=== PATIENT | female | born 2000 | race Caucasian/White ===

== ENCOUNTER 2024-06-13 10:53 | Emergency (ER) | payer SELFPAY ==
[2024-06-13 10:55] VITALS: BP 141/75; PULSE 100; RESP 18; TEMP 36.7; O2SAT 98; BMI 33.9
[2024-06-13 11:28] LABS: Basophils % 0.4 % (0.1-2.0); Eosinophils # 0.5 K/mm3 (0.0-0.4); Eosinophils % 4.8 % (0.1-12.0); Hematocrit 41.7 % (37.0-47.0); Hemoglobin 14.6 g/dL (12.2-16.2); Lymphocytes # 1.4 K/mm3 (0.7-4.5); Lymphocytes % 12.2 % (10-50); Mean Corpuscular HGB Conc 34.9 g/dL (31.8-35.4); Mean Corpuscular Hemoglobin 29.2 pg (27.0-31.2); Mean Corpuscular Volume 83.7 fl (81-99); Mean Platelet Volume 7.1 fl (7.4-10.4); Monocytes # 0.4 K/mm3 (0.1-1.0); Monocytes % 3.6 % (1.7-9.3); Neutrophils % 79.1 % (37.0-80.0); Platelet Count 272 K/mm3 (142-424); Red Blood Count 4.98 M/mm3 (4.20-5.40); Red Cell Distribution Width 14.1 % (11.5-17.5); White Blood Count 11.4 K/mm3 (4.8-10.8)
[2024-06-13 11:37] LABS: Alanine Aminotransferase 33 U/L (12-78); Albumin Level 4.2 g/dl (3.5-5.0); Albumin/Globulin Ratio 1.4 (1.1-1.8); Alkaline Phosphatase 68 U/L (38-126); Anion Gap 15.8 mEq/L (5-15); Aspartate Amino Transferase 31 U/L (14-36); Bilirubin,Total 0.5 mg/dl (0.2-1.3); Blood Urea Nitrogen 12 mg/dl (7-17); Calcium 9.2 mg/dl (8.4-10.2); Carbon Dioxide 19 mmol/L (22.0-30.0); Chloride 107 mmol/L (98-107); Creatinine Clearance Estimated 194 mL/min (50-200); Estimated Glomerular Filt Rate 88 ml/min (>60); GFR (African American) 107 ML/MIN (>60); Globulin 2.9 g/dL (1.3-3.2); Glucose 118 mg/dl (74-100); Potassium 3.8 mmoL/L (3.5-5.1); Sodium 138 mmol/L (136-145); Total Protein,Serum 7.1 g/dl (6.3-8.2)
--- NOTE | 2024-06-13 11:45 | CT_ITS ---
PROCEDURE INFORMATION: Exam: CT Abdomen And Pelvis With Contrast Exam date and time: 06/13/2024 12:59 PM Age: 24 years old Clinical indication: Abdominal pain; Additional info: R sided abd pelvic pain TECHNIQUE: Imaging protocol: Computed tomography of the abdomen and pelvis with contrast. Radiation optimization: All CT scans at this facility use at least one of these dose optimization techniques: automated exposure control; mA and/or kV adjustment per patient size (includes targeted exams where dose is matched to clinical indication); or iterative reconstruction. Contrast material: ISOVUE; Contrast volume: 75 ml; Contrast route: IV; COMPARISON: No relevant prior studies available. FINDINGS: Lungs: Lung bases are unremarkable. Pleural spaces: No pneumothorax. No pleural effusion. Liver: Hepatic steatosis noted. No focal hepatic lesions. Gallbladder and biliary ducts: Normal. No calcified stones. No ductal dilation. Pancreas: No peripancreatic fluid stranding. No main pancreatic ductal dilation. Spleen: No splenomegaly. Adrenal glands: The adrenal glands are normal. Kidneys and ureters: Nephrograms are symmetric. No nephrolithiasis or hydroureteronephrosis on either side. No solid lesions Stomach and bowel: Liquid stool throughout the cecum and ascending colon. Appendix: A normal appendix is identified. Intraperitoneal space: There is no evidence of free intraperitoneal or pelvic fluid. Vasculature: Aorta is nonaneurysmal. Major aortic branches are patent. Lymph nodes: Unremarkable. No enlarged lymph nodes. Urinary bladder: Unremarkable as visualized. Reproductive: Unremarkable as visualized. Bones/joints: Unremarkable. No acute fracture. Soft tissues: Unremarkable. IMPRESSION: Findings can be seen in the context of infectious/inflammatory ascending colitis.
[2024-06-13] MEDS: ACETAMINOPHEN 500MG TAB 1000 MG PO (11:54)
[2024-06-13] MEDS: ONDANSETRON 4MG/2ML VIAL 4 MG IV (11:54)
[2024-06-13] MEDS: KETOROLAC 30MG/ML VIAL 15 MG IV (11:55)
--- NOTE | 2024-06-13 12:39 | HMH.EDGENADL ---
Discharge Plan Disposition Patient Disposition: Home, Self-Care Condition: Good Prescriptions Prescriptions: New ketorolac 10 mg tablet 10 mg PO Q8H PRN (Reason: pain) 3 Days Qty: 12 0RF ondansetron 4 mg tablet,disintegrating 4 mg PO Q8H PRN (Reason: nausea and vomiting) 4 Days Qty: 12 0RF dicyclomine 20 mg tablet 20 mg PO QID PRN (Reason: abdominal pain) Qty: 12 0RF Referrals Follow up/Referrals: Provider,Referral, MD [Primary Care Provider] - See instructions Activity Restrictions/Add. Instructions Additional Instructions/Restrictions: You were evaluated in the emergency department today. At this time, your stool testing is still pending. Stool panel and urine culture was sent and are pending. We will call you if we need to prescribe you any antibiotics based on results. Please picker and packer your prescriptions at the pharmacy and take them as prescribed. You may also take Tylenol every 4-6 hours at home as needed for pain. Make sure you stay orally hydrated. Eat a bland diet until your symptoms have resolved. Return to the emergency department right away for new or worsening symptoms. Follow-up closely with your primary care provider for reassessment Clinical Impressions Clinical Impression: Colitis Stand Alone Forms Stand Alone Forms: Work/School Release Instructions Patient Instructions: DI for Acute Abdominal Pain, DI for Colitis Print Language Print Language: [place] Discharge ED Provider: Kenisha Lundberg General Adult HPI General Chief complaint: Abdominal Pain Stated complaint: R side back and leg pain Time Seen by Provider: 06/13/24 11:36 Mode of Arrival: Ambulatory Source of Information: Patient Limitations: No Limitations Description of Symptoms (Recalled from ER Triage Doc. by RN): PT C/O SUDDEN ONSET OF RIGHT LOWER QUAD PAIN THAT RADIATES AROUND ABDOMEN. PAIN IS SHARP IN NATURE, INTERMITTENT History of Present Illness HPI narrative: This patient is a 24-year-old female who denies significant past medical history presenting to the emergency department for evaluation with concern for right-sided abdominal pain. She states that it is in her right lower quadrant. She is also had nausea secondary to the pain being severe. No fevers, chills, urinary symptoms, abnormal vaginal discharge or bleeding, or other concerns. She does have watery diarrhea this nonbloody. The pain is sharp in nature and intermittent and started this morning. This patient is status post cholecystectomy. Related Data Previous Rx's ?Medication ?Instructions ?Recorded dicyclomine 20 mg tablet 20 mg PO QID PRN abdominal pain 06/13/24 #12 tabs ketorolac 10 mg tablet 10 mg PO Q8H PRN pain 3 days #12 06/13/24 tabs ondansetron 4 mg disintegrating 4 mg PO Q8H PRN nausea and 06/13/24 tablet vomiting 4 days #12 tabs Allergies Allergy/AdvReac Type Severity Reaction Status Date / Time No Known Allergies Allergy Verified 06/13/24 11:11 [facility] Disclaimer: The information contained in this section may have been updated after the patient was seen, as this information can be updated by other users. Social History Smoking Status: Never smoker alcohol intake: never current occupational status: employed Travel in the last 8 weeks: None ROS Obtained: Yes All systems reviewed & no additional complaints except as documented Physical Exam General General appearance: alert and in no apparent distress Head Head exam: atraumatic and normocephalic Eye Eye exam: Present normal appearance, PERRL and EOMI ENT ENT exam: Present normal exam, normal oropharynx, mucous membranes moist and normal external ear exam Neck Neck exam: Present normal inspection, full ROM and trachea midline; Absent tenderness Chest Chest inspection: Present normal inspection and symmetric chest wall rise; Absent tenderness Respiratory Respiratory exam: Present normal lung sounds bilaterally; Absent respiratory distress, wheezes, stridor or accessory muscle use Cardiovascular Cardiovascular exam: Present regular rate and normal rhythm Abdominal Exam Abdominal exam: Present soft, tenderness (Right lower quadrant) and normal bowel sounds; Absent distention, guarding, rebound or rigidity Extremities Exam Extremities exam: Present normal inspection, full ROM and normal capillary refill; Absent tenderness or edema Back Exam Back exam: Present normal inspection and full ROM; Absent tenderness Neurological Exam Neurological exam: Present alert, oriented X3, CN II-XII intact and normal gait; Absent motor sensory deficit Psychiatric Psychiatric exam: Present normal affect and normal mood Skin Skin exam: Present warm and dry Medical Decision Making Medical Records Medical records reviewed: Yes I reviewed the patient's medical records. Screening: Per USPSTF and CDC recommendations, given the prevalence of disease in our region, it is our hospital?s policy to screen for HIV and viral Hepatitis for all patients aged 18 and over and those with ongoing risk factors. Joseph Inquiry Pt receiving controlled substance: No Vital Signs: 06/13/24 10:55 06/13/24 15:01 Temperature 98.0 F 98.0 F Temperature Source Oral Pulse Rate 89 Pulse Rate [Radial] 100 H Respiratory Rate 18 20 Blood Pressure 120/78 Blood Pressure [Left Arm] 141/75 H Blood Pressure Mean [Left Arm] 97 Blood Pressure Source [Left Arm] Automatic Cuff Blood Pressure Position [Left Arm] Sitting 02 Sat by Pulse Oximetry 98 Oxygen Delivery Method Room Air Room Air Lab Data Lab results reviewed: Yes I reviewed the patient's lab results. Lab Results 06/13/24 11:18: WBC 11.4 H, RBC 4.98, Hgb 14.6, Hct 41.7, MCV 83.7, MCH 29.2, MCHC 34.9, RDW 14.1, Plt Count 272, MPV 7.1 L, Neut % (Auto) 79.1, Lymph % (Auto) 12.2, [place] % (Auto) 3.6, Eos % (Auto) 4.8, Baso % (Auto) 0.4, Neut # (Auto) 9.0 H, Lymph # (Auto) 1.4, [place] # (Auto) 0.4, Eos # (Auto) 0.5 H, Baso # (Auto) 0.0, Sodium 138, Potassium 3.8, Chloride 107, Carbon Dioxide 19 L, Anion Gap 15.8 H, BUN 12, Creatinine 0.80, Estimated Creat Clear 194, Estimated GFR 88, Est GFR ( Amer) 107, Glucose 118 H, Calcium 9.2, Total Bilirubin 0.5, AST 31, ALT 33, Alkaline Phosphatase 68, Total Protein 7.1, Albumin 4.2, Globulin 2.9, Albumin/Globulin Ratio 1.4, Serum HCG, Qual Negative 06/13/24 12:39: Urine Color Yellow, Urine Appearance Cloudy, Urine pH 5.5, Ur Specific [place] >= 1.030, Urine Protein Trace, Urine Glucose (UA) Negative, Urine Ketones Trace, Urine Blood Negative, Urine Nitrate Negative, Urine Bilirubin 1+ A, Urine Urobilinogen 0.2, Ur Leukocyte Esterase 1+ A, Urine RBC None, Urine WBC 3-5, Ur Squamous Epith Cells 3-5, Calcium Oxalate Crystal 2+, Urine Bacteria 3+ 06/13/24 11:18 06/13/24 11:18 Orders (Tests/Meds): ED MEDICATIONS Discontinued Medications Generic Name Dose Route Start Last Admin Trade Name Ron PRN Reason Stop Dose Admin Acetaminophen 1,000 mg 06/13/24 11:45 06/13/24 11:54 Acetaminophen 500mg Tab PO 06/13/24 11:46 1,000 mg ONCE ONE Administration Iopamidol 75 ml 06/13/24 13:05 06/13/24 13:06 Iopamidol-370 (76%);100ml Bottle IV 06/13/24 13:06 75 ml ONCE ONE Administration Ketorolac Tromethamine 15 mg 06/13/24 11:45 06/13/24 11:55 Ketorolac 30mg/Ml Vial IV 06/13/24 11:46 15 mg ONCE ONE Administration Ondansetron HCl 4 mg 06/13/24 11:45 06/13/24 11:54 Ondansetron 4mg/2ml Vial IV 06/13/24 11:46 4 mg ONCE ONE Administration Sodium Chloride 10 ml 06/13/24 11:23 Sodium Chloride 0.9% 10ml Flush Syringe IV 07/13/24 11:22 NEEDED PRN Maintain IV Site Sodium Chloride 10 ml 06/13/24 13:05 06/13/24 13:06 Sodium Chloride 0.9% 10ml Syr (Rad Only) IV 07/13/24 13:04 10 ml NEEDED PRN Administration Maintain IV Site ORDERS Category Date Time Status CT abdomen pelvis w con Stat Cat Scan 06/13/24 11:45 Completed CMP [Comprehensive Metabolic Panel] Stat Lab 06/13/24 11:18 Completed Complete Blood Count Auto Diff Stat Lab 06/13/24 11:18 Completed Diarrhea 23 Panel, PCR Stat Lab 06/13/24 13:32 Received Serum [HCG Qualitative, Serum] Stat Lab 06/13/24 11:18 Completed Urinalysis and Microscopic Stat Lab 06/13/24 12:39 Completed Urine Culture Stat Micro 06/13/24 12:39 Received Medical Decision Narrative: In summary, this 24-year-old female patient is a 24 yo F presenting to the Emergency Department for evaluation of abdominal pain. Differential diagnoses considered include but are not limited to appendicitis, colitis, ovarian cyst, ovarian torsion, cystitis, ectopic. Ruling out the most morbid conditions drove assessment. On exam, the patient is sitting in bed no acute distress. She does have right lower quadrant abdominal tenderness but no rebound or guarding. Workup included CBC, CMP, urinalysis, test, and CT abdomen pelvis with IV contrast. She was given IV Toradol, Zofran, oral Tylenol for symptomatic improvement. I independently interpreted CT scan prior to the radiologist read and noted no large ovarian cyst, no appendicitis. She does have findings concerning for colitis. Please see their read for final interpretation. Labs were obtained that demonstrated very mild leukocytosis. Urine has some contamination with skin cells but is not overtly concerning for infection. She does have some calcium oxalate crystals but no obstructive uropathy noted on CT scan. On reassessment, patient had good improvement after administration of as above. She is able to tolerate oral intake. Stool sample was obtained and is pending at this time for further workup of her colitis. Ultimately, given reassuring workup and exam as well as improvement in symptoms, I feel she is appropriate for discharge home with instructions for supportive management of colitis and strict return precautions. She was given prescription for naproxen, Bentyl, Zofran as well as instruction for supportive management and close follow-up. Patient was discharged after all questions were answered. Critical Care Critical Care Time Critical Care Time: No
[2024-06-13 12:44] LABS: Microscopic, Urine URINE MICROSCOPIC (MICROSCOPIC)
[2024-06-13 12:46] LABS: HCG Qualitative, Serum Negative (Negative)
[2024-06-13 12:47] LABS: Appearance,Urine CLOUDY (Clear); Blood, Urine Negative (Negative); Color,Urine YELLOW (Yellow); Glucose,Urine (UA) Negative (Negative); Ketones,Urine TRACE (Negative); Leukocyte Esterase,Urine 1+ (Negative); Nitrate,Urine Negative (Negative); PH,Urine 5.5 (5.0-8.5); Protein,Urine TRACE (Negative); Specific Gravity, Urine >= 1.030 (1.005-1.030); Urobilinogen,Urine 0.2 EU/dl (0.2)
[2024-06-13 12:57] LABS: Bacteria,Urine 3+ /lpf; Bilirubin,Urine 1+ (Negative); Calcium Oxalate Crystals,Urine 2+ /lpf
[2024-06-13] MEDS: IOPAMIDOL-370 (76%);100ML BOTTLE 75 ML IV (13:06)
[2024-06-13] MEDS: SODIUM CHLORIDE 0.9% 10ML SYR (RAD ONLY) 10 ML IV (13:06)
[2024-06-13 13:38] LABS: Adenovirus F 40/41, stool Not Detected (NotDetected); Astrovirus Not Detected (NotDetected); Campylobacter Not Detected (NotDetected); Clostridium Difficile A/B, PCR Not Detected (NotDetected); Cryptosporidium Not Detected (NotDetected); Cyclospora Cayetanesis Not Detected (NotDetected); Entamoeba histolytica Not Detected (NotDetected); Enteroaggregative E coli Not Detected (NotDetected); Enteropathogenic E coli Not Detected (NotDetected); Giardia lamblia Not Detected (NotDetected); Norovirus Not Detected (NotDetected); Plesimonas Shigalloides, PCR Not Detected (NotDetected); Rotavirus A Not Detected (NotDetected); Salmonella, PCR Not Detected (NotDetected); Sapovirus Not Detected (NotDetected); Shiga-like toxin E coli Not Detected (NotDetected); Shigella Enterovasive E coli Not Detected (NotDetected); Vibrio Cholerae Not Detected (NotDetected); Vibrio, PCR Not Detected (NotDetected); Yersinia Entercolitica, PCR Not Detected (NotDetected)
[2024-06-13 15:01] VITALS: BP 120/78; PULSE 89; RESP 20; TEMP 36.7; O2SAT 98
[2024-06-13 16:40] LABS: Enterotoxigenic E coli Detected (NotDetected)
--- NOTE | 2024-06-13 16:41 | PC.NURSE ---
STOOL RESULTS REPORTED TO DR MEAD, NO NEW ORDERS
== END 2024-06-13 15:02 | disposition home or self-care (01) ==
PROVIDERS: Emergency Provider Emergency Medicine
DX: K52.9 Noninfective gastroenteritis and colitis, unspecified (principal); R10.31 Right lower quadrant pain; R11.0 Nausea
CPT/HCPCS: 74177; 80053; 81001; 84703; 85025; 87086; 87507; 96374; 96375; 99285; J1885; J2405; Q9967

== ENCOUNTER 2024-07-25 16:39 | Emergency (ER) | payer BC, SELFPAY ==
--- NOTE | 2024-07-25 16:41 | ECG_ITS ---
APPROVED REPORT Exam: Resting ECG HR:79 bpm ECG Measurements Heart Rate 79 AXES WI 142 P 69 QRSd 84 QRS 78 QT 369 T 57 QTc 404 Conclusion SINUS RHYTHM NORMAL ECG UNCONFIRMED REPORT Electronically signed by : JOHAN CRUZ, 07/27/2024 06:48:00
[2024-07-25 16:48] VITALS: BP 136/94; PULSE 85; RESP 16; TEMP 36.7; O2SAT 99; BMI 35.9
[2024-07-25 16:50] VITALS: BP 121/86; PULSE 90; RESP 15; O2SAT 98
--- NOTE | 2024-07-25 16:50 | XR_ITS ---
PROCEDURE INFORMATION: Exam: XR Chest Exam date and time: 07/25/2024 5:21 PM Age: 24 years old Clinical indication: Cough and fever; Additional info: Fever, cough TECHNIQUE: Imaging protocol: Radiologic exam of the chest. Views: 2 views. COMPARISON: CT ABDOMEN PELVIS W CON 06/13/2024 12:59 PM FINDINGS: Lungs: Central opacities with peribronchial cuffing, seen to advantage on the lateral chest radiograph. Pleural spaces: Unremarkable. No pleural effusion. No pneumothorax. Heart/Mediastinum: Unremarkable. No cardiomegaly. Bones/joints: Unremarkable. IMPRESSION: Combination of findings that suggests viral process versus reactive airways without evidence of consolidation.
--- NOTE | 2024-07-25 16:50 | HMH.EDGENADL ---
Discharge Plan Disposition Patient Disposition: Home, Self-Care Prescriptions Prescriptions: New famotidine [Pepcid] 20 mg tablet 20 mg PO BID 42 Days Qty: 84 0RF No Action prazosin 1 mg capsule 1 mg PO DAILY naltrexone 50 mg tablet 50 mg PO DAILY sertraline 100 mg tablet 100 mg PO DAILY aripiprazole 10 mg tablet 10 mg PO DAILY bupropion HCl 150 mg tablet extended release 24 hr 150 mg PO DAILY Referrals Follow up/Referrals: Provider,Referral, MD [Referring] - See instructions Activity Restrictions/Add. Instructions Additional Instructions/Restrictions: Follow-up with primary care doctor. Take Pepcid as prescribed. Please return the emerged part with any new, concerning, worsening symptoms. Clinical Impressions Clinical Impression: Chest pain Qualifiers: Chest pain type: unspecified Qualified Code(s): R07.9 - Chest pain, unspecified Print Language Print Language: Thai Discharge ED Provider: Shiv Huang General Adult HPI General Chief complaint: Chest Pain Stated complaint: Chest pain Time Seen by Provider: 07/25/24 16:40 Mode of Arrival: Ambulatory Source of Information: Patient Limitations: No Limitations History of Present Illness HPI narrative: This is a 24-year-old female with a past medical history of colitis who presents with chest pain that has been occurring intermittently over the last several weeks, however worse last night. Describes it as a stabbing pain in the center of her chest. States that it is worse with inspiration when it occurs. Resolves spontaneously. Is currently asymptomatic. Denies fever or cough. Denies any other symptoms. Denies any exacerbating or relieving factors. Denies OCP use or prior PE. No recent travel. Related Data Home Medications ?Medication ?Instructions ?Recorded ?Confirmed aripiprazole 10 mg tablet 10 mg PO DAILY 07/25/24 07/25/24 bupropion HCl 150 mg 24 hr tablet, 150 mg PO DAILY 07/25/24 07/25/24 extended release naltrexone 50 mg tablet 50 mg PO DAILY 07/25/24 07/25/24 prazosin 1 mg capsule 1 mg PO DAILY 07/25/24 07/25/24 sertraline 100 mg tablet 100 mg PO DAILY 07/25/24 07/25/24 Previous Rx's ?Medication ?Instructions ?Recorded famotidine 20 mg tablet (Pepcid) 20 mg PO BID 6 weeks #84 tabs 07/25/24 Allergies Allergy/AdvReac Type Severity Reaction Status Date / Time No Known Allergies Allergy Verified 06/13/24 11:11 [facility] Disclaimer: The information contained in this section may have been updated after the patient was seen, as this information can be updated by other users. Medical History (Updated 07/25/24 @ 17:55 by Shiv Huang MD) Colitis Anxiety Depression Thoughts of self harm Social History (Updated 07/25/24 @ 16:48 by Francheska Chavez RN) Smoking Status: Never smoker alcohol intake: never current occupational status: employed Travel in the last 8 weeks: None Have you lived/traveled outside [place] in past 30 days?: No Contact w/someone who lives/traveled outside US past 30 days?: No Exposure to someone with infectious disease in past 14 days?: No Do you have a fever (greater than 100.4 F or 38 C)?: No Have you tested positive for COVID-19: No Exposed to someone with COVID-19 in past 14 days?: No Do you have a sore throat?: No Do you have a cough?: No Do you have any weakness?: No Are you experiencing any nausea/vomitting?: No Do you have any diarrhea?: No Are you experiencing any unusual bleeding?: No Do you have any muscle aches/pain?: No Do you have any abdominal pain?: No Are you experiencing loss of taste or smell?: No ROS Obtained: Yes All systems reviewed & no additional complaints except as documented Physical Exam General General appearance: alert and in no apparent distress Eye Eye exam: Present normal appearance, PERRL and EOMI Respiratory Respiratory exam: Present normal lung sounds bilaterally; Absent respiratory distress Cardiovascular Cardiovascular exam: Present regular rate and normal rhythm Abdominal Exam Abdominal exam: Present soft and distention; Absent tenderness, guarding or rebound Extremities Exam Extremities exam: Present normal inspection Neurological Exam Neurological exam: Present alert and oriented X3 Skin Skin exam: Present warm and dry Medical Decision Making Medical Records Medical records reviewed: Yes I reviewed the patient's medical records. Screening: Per USPSTF and CDC recommendations, given the prevalence of disease in our region, it is our hospital?s policy to screen for HIV and viral Hepatitis for all patients aged 18 and over and those with ongoing risk factors. Joseph Inquiry Pt receiving controlled substance: No Vital Signs: 07/25/24 16:48 07/25/24 16:50 07/25/24 16:57 Temperature 98.0 F Temperature Source Oral Pulse Rate 90 105 H Pulse Rate [Right Brachial] 85 Respiratory Rate 16 15 Blood Pressure 121/86 Blood Pressure [Right Arm] 136/94 H Blood Pressure Mean [Right Arm] 108 Blood Pressure Source [Right Arm] Automatic Cuff Blood Pressure Position [Right Arm] Sitting 02 Sat by Pulse Oximetry 99 98 Oxygen Delivery Method Room Air Room Air Lab Data Lab Results 07/25/24 16:45: WBC 6.1, RBC 4.76, Hgb 13.0, Hct 39.5, MCV 83.0, MCH 27.3, MCHC 32.9, RDW 13.0, Plt Count 223, MPV 9.1, Neut % (Auto) 65.3, Lymph % (Auto) 25.6, [place] % (Auto) 4.8, Eos % (Auto) 3.6, Baso % (Auto) 0.5, Neut # (Auto) 4.0, Lymph # (Auto) 1.6, [place] # (Auto) 0.3, Eos # (Auto) 0.2, Baso # (Auto) 0.0, Sodium 139, Potassium 3.9, Chloride 104, Carbon Dioxide 28, Anion Gap 10.9, BUN 13, Creatinine 1.00, Estimated Creat Clear 165, Estimated GFR 68, Est GFR ( Amer) 82, Glucose 110 H, Calcium 9.1, Total Bilirubin 0.4, AST 31, ALT 33, Alkaline Phosphatase 74, Troponin I < 0.01, Total Protein 6.7, Albumin 4.0, Globulin 2.7, Albumin/Globulin Ratio 1.5, Serum HCG, Qual Negative 07/25/24 16:45 07/25/24 16:45 Orders (Tests/Meds): ED MEDICATIONS Discontinued Medications Generic Name Dose Route Start Last Admin Trade Name Freq PRN Reason Stop Dose Admin Belladonna Alkaloids 60 ml 07/25/24 16:49 07/25/24 16:54 Belladonna Alkaloids 60 Ml Ml PO 07/25/24 16:50 60 ml ONCE ONE Administration Famotidine 40 mg 07/25/24 16:49 07/25/24 16:54 Famotidine 20mg Tablet PO 07/25/24 16:50 40 mg ONCE ONE Administration ORDERS Category Date Time Status Chest XR 2 view (NOT portable) [XR chest 2V] Stat Exams 07/25/24 16:50 Taken CBC w/Auto Diff [Complete Blood Count Auto Diff] Stat Lab 07/25/24 16:45 Completed CMP [Comprehensive Metabolic Panel] Stat Lab 07/25/24 16:45 Completed HCG Qualitative, Serum Stat Lab 07/25/24 16:45 Completed HIV Combo Stat Lab 07/25/24 16:45 Received Hep C Ab with Reflex to RNA Stat Lab 07/25/24 16:45 Received Troponin I Stat Lab 07/25/24 16:45 Completed ECG Data Tracing #1: I reviewed this ECG and interpreted as documented below: Normal sinus rhythm at a rate of 79, normal axis, QTc 4 4, no STEMI Medical Decision Narrative: In summary, this 24-year-old female presents to the emergency department today with intermittent chest pain over the last several weeks. On initial evaluation patient is nontachycardic, afebrile, no acute respiratory distress. Differential diagnosis includes but is not limited to PE, ACS, GERD, pleurisy, pneumonia. Based on these concerns, I ordered chest x-ray, EKG, CBC, CMP, test, troponin. Considered CT PE, however patient is low risk [place] and clinically ruled out from PE via PERC criteria. ECG personally interpreted as noted above. Patient received Pepcid and GI cocktail for treatment. Labs personally reviewed demonstrate negative test, unremarkable CBC and CMP, undetectable troponin. XR personally interpreted demonstrates no acute cardiopulmonary pathology on chest x-ray. On reassessment patient in stable condition and asymptomatic. Appropriate for discharge at this time. Prescribed Pepcid. She is to follow-up with primary care doctor. Return precautions given. Critical Care Critical Care Time Critical Care Time: No
[2024-07-25] MEDS: FAMOTIDINE 20MG TABLET 40 MG PO (16:54)
[2024-07-25] MEDS: BELLADONNA ALKALOIDS 60 ML ML PO (16:54)
[2024-07-25 16:57] VITALS: PULSE 105
[2024-07-25 17:00] VITALS: BP 132/82; PULSE 78; RESP 23; O2SAT 98
[2024-07-25 17:05] LABS: Alanine Aminotransferase 33 U/L (12-78); Albumin/Globulin Ratio 1.5 (1.1-1.8); Alkaline Phosphatase 74 U/L (38-126); Anion Gap 10.9 mEq/L (5-15); Aspartate Amino Transferase 31 U/L (14-36); Bilirubin,Total 0.4 mg/dl (0.2-1.3); Blood Urea Nitrogen 13 mg/dl (7-17); Calcium 9.1 mg/dl (8.4-10.2); Carbon Dioxide 28 mmol/L (22.0-30.0); Chloride 104 mmol/L (98-107); Creatinine Clearance Estimated 165 mL/min (50-200); Estimated Glomerular Filt Rate 68 ml/min (>60); GFR (African American) 82 ML/MIN (>60); Globulin 2.7 g/dL (1.3-3.2); Glucose 110 mg/dl (74-100); Potassium 3.9 mmoL/L (3.5-5.1); Sodium 139 mmol/L (136-145); Total Protein,Serum 6.7 g/dl (6.3-8.2)
[2024-07-25 17:06] LABS: Basophils % 0.5 % (0.1-2.0); Eosinophils # 0.2 K/mm3 (0.0-0.4); Eosinophils % 3.6 % (0.1-12.0); Hematocrit 39.5 % (37.0-47.0); Lymphocytes # 1.6 K/mm3 (0.7-4.5); Lymphocytes % 25.6 % (10-50); Mean Corpuscular HGB Conc 32.9 g/dL (31.8-35.4); Mean Corpuscular Hemoglobin 27.3 pg (27.0-31.2); Mean Platelet Volume 9.1 fl (7.4-10.4); Monocytes # 0.3 K/mm3 (0.1-1.0); Monocytes % 4.8 % (1.7-9.3); Neutrophils % 65.3 % (37.0-80.0); Platelet Count 223 K/mm3 (142-424); Red Blood Count 4.76 M/mm3 (4.20-5.40); White Blood Count 6.1 K/mm3 (4.8-10.8)
[2024-07-25 17:09] LABS: HCG Qualitative, Serum Negative (Negative)
[2024-07-25 17:17] LABS: Troponin I < 0.01 ng/ml (0.00-0.034)
[2024-07-25 17:58] VITALS: BP 132/82; PULSE 74; RESP 18; TEMP 36.7; O2SAT 98
[2024-07-25 18:00] VITALS: BP 130/86; PULSE 74; RESP 16; O2SAT 97
[2024-07-25 20:14] LABS: HIV Combo NEGATIVE (Negative)
[2024-07-27 10:24] LABS: HCV Ab Non Reactive (Non Reactive)
== END 2024-07-25 18:06 | disposition home or self-care (01) ==
PROVIDERS: Emergency Provider Student in an Organized Health Care Education/Training Program; PCP Nurse Practitioner Family
DX: R07.9 Chest pain, unspecified (principal)
CPT/HCPCS: 71046; 80053; 84484; 84703; 85025; 86803; 87389; 93005; 99284

== ENCOUNTER 2024-09-12 23:09 | Emergency (ER) | payer BC, SELFPAY ==
[2024-09-12 23:10] VITALS: BP 122/85; PULSE 90; RESP 16; TEMP 36.6; O2SAT 98; BMI 36.8
--- NOTE | 2024-09-12 23:18 | XR_ITS ---
PROCEDURE INFORMATION: Exam: XR Chest Exam date and time: 09/12/2024 11:58 PM Age: 24 years old Clinical indication: Pain; Chest pressure; Additional info: Cp TECHNIQUE: Imaging protocol: Radiologic exam of the chest. Views: 1 view. COMPARISON: CR XR CHEST 2V 07/25/2024 5:21 PM FINDINGS: Lungs: No evidence of acute pulmonary disease or infiltrates Pleural spaces: No large effusion or pneumothorax. Heart/Mediastinum: No evidence of mediastinal widening or cardiac silhouette enlargement; the mediastinum and heart appear within normal limits for contour and size. Bones/joints: No evidence of acute osseous abnormalities within the visualized portions of the thoracic spine and ribs. Osseous structures appear appropriate for patient age. IMPRESSION: No dense parenchymal consolidation, pleural effusion, or pneumothorax.
--- NOTE | 2024-09-12 23:18 | HMH.EDGENADL ---
Discharge Plan Disposition Patient Disposition: Home, Self-Care Prescriptions Prescriptions: New lidocaine 5 % adhesive patch,medicated 1 patch topical DAILY PRN (Reason: pain) Qty: 30 0RF Rx Instructions: leave on most painful area for up to 12 hrs No Action prazosin 1 mg capsule 1 mg PO DAILY naltrexone 50 mg tablet 50 mg PO DAILY sertraline 100 mg tablet 100 mg PO DAILY aripiprazole 10 mg tablet 10 mg PO DAILY bupropion HCl 150 mg tablet extended release 24 hr 150 mg PO DAILY famotidine [Pepcid] 20 mg tablet 20 mg PO BID 42 Days Qty: 84 0RF Referrals Follow up/Referrals: Iris Correa [Primary Care Provider] - See instructions Activity Restrictions/Add. Instructions Additional Instructions/Restrictions: Please follow-up with your primary care provider. Please return to the emergency department if you develop any new or worsening symptoms or become concerned for your health. Clinical Impressions Clinical Impression: Palpitations, Anterior leg pain Chest pain Qualifiers: Chest pain type: unspecified Qualified Code(s): R07.9 - Chest pain, unspecified Print Language Print Language: Tajik Discharge ED Provider: Miles Dey General Adult HPI General Chief complaint: Chest Pain Stated complaint: cp, confusion, palpatations Time Seen by Provider: 09/12/24 23:10 History of Present Illness HPI narrative: 24-year-old female with history of depression presents for multiple complaints. She reports that she has been having left anterior leg pain for the last few weeks and was started on steroids and a muscle relaxer recently. Patient's pain seems to be consistent with meralgia paresthetica. Today she came in because she has been having relatively sudden onset chest pain/pressure, pain with deep inspiration, anxiety, palpitations, cannot sleep, feels like she saw her dog even though it was not there. She denies fever at home. Reports that she has not really been on steroids anytime recently. Denies contraceptives, denies history of PE or DVT. Denies any recent travel. Related Data Home Medications ?Medication ?Instructions ?Recorded ?Confirmed aripiprazole 10 mg tablet 10 mg PO DAILY 07/25/24 07/25/24 bupropion HCl 150 mg 24 hr tablet, 150 mg PO DAILY 07/25/24 07/25/24 extended release naltrexone 50 mg tablet 50 mg PO DAILY 07/25/24 07/25/24 prazosin 1 mg capsule 1 mg PO DAILY 07/25/24 07/25/24 sertraline 100 mg tablet 100 mg PO DAILY 07/25/24 07/25/24 Previous Rx's ?Medication ?Instructions ?Recorded famotidine 20 mg tablet (Pepcid) 20 mg PO BID 6 weeks #84 tabs 07/25/24 lidocaine 5 % topical patch 1 patch topical DAILY PRN pain #30 09/13/24 ea Allergies Allergy/AdvReac Type Severity Reaction Status Date / Time No Known Allergies Allergy Verified 06/13/24 11:11 [facility] Disclaimer: The information contained in this section may have been updated after the patient was seen, as this information can be updated by other users. Medical History (Updated 09/13/24 @ 00:10 by Miles Dey MD) Colitis Anxiety Depression Thoughts of self harm Social History (Updated 07/25/24 @ 16:48 by Francheska Chavez RN) Smoking Status: Never smoker alcohol intake: never current occupational status: employed Travel in the last 8 weeks: None Have you lived/traveled outside [place] in past 30 days?: No Contact w/someone who lives/traveled outside US past 30 days?: No Exposure to someone with infectious disease in past 14 days?: No Do you have a fever (greater than 100.4 F or 38 C)?: No Have you tested positive for COVID-19: No Exposed to someone with COVID-19 in past 14 days?: No Do you have a sore throat?: No Do you have a cough?: No Do you have any weakness?: No Do you have any diarrhea?: No Are you experiencing any unusual bleeding?: No Do you have any muscle aches/pain?: No Do you have any abdominal pain?: No Are you experiencing loss of taste or smell?: No ROS Obtained: Yes All systems reviewed & no additional complaints except as documented Physical Exam General General appearance: alert and anxious Head Head exam: atraumatic and normocephalic Eye Eye exam: Present normal appearance, PERRL and EOMI ENT ENT exam: Present normal oropharynx and normal external ear exam Neck Neck exam: Present normal inspection and full ROM Chest Chest inspection: Present normal inspection and symmetric chest wall rise; Absent tenderness Respiratory Respiratory exam: Present normal lung sounds bilaterally; Absent respiratory distress Cardiovascular Cardiovascular exam: Present regular rate and normal rhythm Abdominal Exam Abdominal exam: Present soft; Absent distention, tenderness or guarding Extremities Exam Extremities exam: Present normal inspection; Absent edema or joint swelling Back Exam Back exam: Present normal inspection; Absent tenderness Neurological Exam Neurological exam: Present alert and oriented X3; Absent motor sensory deficit Psychiatric Psychiatric exam: Present normal affect and normal mood Skin Skin exam: Present warm, dry and normal color Lymphatic Lymphatic Findings: no adenopathy Medical Decision Making Medical Records Medical records reviewed: Yes I reviewed the patient's medical records. Screening: Per USPSTF and CDC recommendations, given the prevalence of disease in our region, it is our hospital?s policy to screen for HIV and viral Hepatitis for all patients aged 18 and over and those with ongoing risk factors. Joseph Inquiry Pt receiving controlled substance: No Joseph was queried for this patient: No Vital Signs: 09/12/24 23:10 09/13/24 00:09 09/13/24 00:09 Temperature 97.9 F 98.0 F Temperature Source Oral Oral Pulse Rate 102 H 108 H Pulse Rate [Right Radial] 90 Respiratory Rate 16 18 Blood Pressure 115/78 Blood Pressure [Right Arm] 122/85 Blood Pressure Mean [Right Arm] 97 Blood Pressure Source Automatic Cuff Blood Pressure Source [Right Arm] Automatic Cuff Blood Pressure Position Sitting Blood Pressure Position [Right Arm] Supine 02 Sat by Pulse Oximetry 98 Oxygen Delivery Method Room Air Room Air Lab Data Lab results reviewed: Yes I reviewed the patient's lab results. Lab Results 09/12/24 23:10: WBC 10.8, RBC 4.78, Hgb 13.0, Hct 39.4, MCV 82.4, MCH 27.2, MCHC 33.0, RDW 13.4, Plt Count 260, MPV 9.5, Neut % (Auto) 76.6, Lymph % (Auto) 17.3, [place] % (Auto) 4.0, Eos % (Auto) 1.2, Baso % (Auto) 0.4, Neut # (Auto) 8.3 H, Lymph # (Auto) 1.9, [place] # (Auto) 0.4, Eos # (Auto) 0.1, Baso # (Auto) 0.0, D-Dimer 0.44, Sodium 139, Potassium 3.8, Chloride 102, Carbon Dioxide 27, Anion Gap 13.8, BUN 11, Creatinine 0.70, Estimated Creat Clear 241, Estimated GFR 103, Est GFR ( Amer) 124, Glucose 143 H, Calcium 9.3, Total Bilirubin 0.1 L, AST 34, ALT 35, Alkaline Phosphatase 69, Troponin I < 0.01, Total Protein 7.1, Albumin 4.5, Globulin 2.6, Albumin/Globulin Ratio 1.7, TSH 3.88, Thyroxine (T4) 8.6, Serum HCG, Qual Negative 09/12/24 23:10 09/12/24 23:10 Orders (Tests/Meds): ED MEDICATIONS Discontinued Medications Generic Name Dose Route Start Last Admin Trade Name Freq PRN Reason Stop Dose Admin Acetaminophen 1,000 mg 09/12/24 23:18 09/12/24 23:23 Acetaminophen 500mg Tab PO 09/12/24 23:19 1,000 mg ONCE ONE Administration Lidocaine 1 each 09/13/24 00:08 09/13/24 00:10 Lidocaine 5% Transdermal Patch TP 09/13/24 00:09 1 each ONCE ONE Administration ORDERS Category Date Time Status CXR --portable [XR chest portable] Stat Exams 09/12/24 23:18 Completed CBC w/Auto Diff [Complete Blood Count Auto Diff] Stat Lab 09/12/24 23:10 Completed CMP [Comprehensive Metabolic Panel] Stat Lab 09/12/24 23:10 Completed D-Dimer Stat Lab 09/12/24 23:10 Completed HCG Qualitative, Serum Stat Lab 09/12/24 23:10 Completed T4 (Thyroxine) Stat Lab 09/12/24 23:10 Completed TSH [Thyroid Stimulating Hormone] Stat Lab 09/12/24 23:10 Completed Troponin I Q3H Lab 09/12/24 23:10 Completed Troponin I Q3H Lab 09/13/24 02:30 Ordered ECG Data Tracing #1: ECG initial impression date: 09/12/24 ECG initial impression time: 23:20 ECG normal with no acute: arrhythmias, ischemia, conduction abnormalities, chamber hypertrophy Normal Sinus Rhythm: Yes HEART Score History (anamnesis): Slightly suspicious ECG: Normal Age: <45 years Risk factors: No known risk factors Troponin: </= normal limit HEART Score: 0 Medical Decision Narrative: 24-year-old female with history of depression presents for palpitations, anxiety, chest pain after starting steroids for leg pain.. History was obtained via interactive discussion with patient family chart review. On arrival, patient is [afebrile, hemodynamically stable, satting appropriately, alert, oriented x4, GCS 15], moving all extremities spontaneously. Full physical exam performed and significant for clear lungs bilaterally, no unilateral limb swelling or edema Differential includes but is not limited to medication side effect from steroids, could also include PE, DVT, arrhythmia, pneumothorax. Workup initiated including CBC CMP D-dimer troponin EKG chest x-ray test TSH T4. On re-evaluation, patient [remains afebrile, HD stable.] Laboratory workup independently interpreted by me and significant for negative initial troponin, no significant leukocytosis, negative D-dimer by years criteria. Imaging independently interpreted by me and significant for no focal opacity, no pneumothorax. See radiology read for full review of final results. EKG independently interpreted by me and significant for normal sinus rhythm. CT PE was considered, but deemed unnecessary due to negative D-dimer. Given patient history, exam and workup, patient's presentation most likely represents medication side effect from the steroids she was recently initiated on. Patient was discharged in stable condition with return precautions. Procedures Risk/Benefits of Procedure(s) Were Explained: Yes Critical Care Critical Care Time Critical Care Time: No
--- NOTE | 2024-09-12 23:20 | ECG_ITS ---
APPROVED REPORT Exam: Resting ECG HR:98 bpm ECG Measurements Heart Rate 98 AXES MI 143 P 56 QRSd 90 QRS 52 QT 347 T 32 QTc 402 Conclusion SINUS RHYTHM NONSPECIFIC T-WAVE ABNORMALITY BORDERLINE ECG UNCONFIRMED REPORT Electronically signed by : JOHAN CRUZ, 09/14/2024 06:50:01
[2024-09-12] MEDS: ACETAMINOPHEN 500MG TAB 1000 MG PO (23:23)
[2024-09-12 23:27] LABS: Basophils % 0.4 % (0.1-2.0); Eosinophils # 0.1 K/mm3 (0.0-0.4); Eosinophils % 1.2 % (0.1-12.0); Hematocrit 39.4 % (37.0-47.0); Lymphocytes # 1.9 K/mm3 (0.7-4.5); Lymphocytes % 17.3 % (10-50); Mean Corpuscular Hemoglobin 27.2 pg (27.0-31.2); Mean Corpuscular Volume 82.4 fl (81-99); Mean Platelet Volume 9.5 fl (7.4-10.4); Monocytes # 0.4 K/mm3 (0.1-1.0); Neutrophils # 8.3 K/mm3 (1.8-7.8); Neutrophils % 76.6 % (37.0-80.0); Platelet Count 260 K/mm3 (142-424); Red Blood Count 4.78 M/mm3 (4.20-5.40); Red Cell Distribution Width 13.4 % (11.5-17.5); White Blood Count 10.8 K/mm3 (4.8-10.8)
[2024-09-12 23:37] LABS: Alanine Aminotransferase 35 U/L (12-78); Albumin Level 4.5 g/dl (3.5-5.0); Albumin/Globulin Ratio 1.7 (1.1-1.8); Alkaline Phosphatase 69 U/L (38-126); Anion Gap 13.8 mEq/L (5-15); Aspartate Amino Transferase 34 U/L (14-36); Blood Urea Nitrogen 11 mg/dl (7-17); Calcium 9.3 mg/dl (8.4-10.2); Carbon Dioxide 27 mmol/L (22.0-30.0); Chloride 102 mmol/L (98-107); Creatinine Clearance Estimated 241 mL/min (50-200); Estimated Glomerular Filt Rate 103 ml/min (>60); GFR (African American) 124 ML/MIN (>60); Globulin 2.6 g/dL (1.3-3.2); Glucose 143 mg/dl (74-100); Potassium 3.8 mmoL/L (3.5-5.1); Sodium 139 mmol/L (136-145); Total Protein,Serum 7.1 g/dl (6.3-8.2)
[2024-09-12 23:39] LABS: Bilirubin,Total 0.1 mg/dl (0.2-1.3)
[2024-09-12 23:41] LABS: D-Dimer 0.44 ug/mL (0.0-0.5)
[2024-09-12 23:53] LABS: HCG Qualitative, Serum Negative (Negative); Troponin I < 0.01 ng/ml (0.00-0.034)
[2024-09-12 23:55] LABS: T4 (Thyroxine) 8.6 ug/dl (5.53-11.0)
[2024-09-13 00:09] VITALS: BP 115/78; PULSE 102; PULSE 108; RESP 18; TEMP 36.7; O2SAT 98
[2024-09-13 00:09] LABS: Thyroid Stimulating Hormone 3.88 uIU/mL (0.465-4.68)
[2024-09-13] MEDS: LIDOCAINE 5% TRANSDERMAL PATCH 1 EACH TP (00:10)
== END 2024-09-13 00:14 | disposition home or self-care (01) ==
PROVIDERS: Emergency Provider Emergency Medicine; PCP Nurse Practitioner Family
DX: R07.9 Chest pain, unspecified (principal); R41.82 Altered mental status, unspecified; R00.2 Palpitations; M79.605 Pain in left leg; F41.9 Anxiety disorder, unspecified
CPT/HCPCS: 71045; 80053; 84436; 84443; 84484; 84703; 85025; 85378; 93005; 99284

== ENCOUNTER 2024-11-14 22:21 | Emergency (ER) | payer BC, SELFPAY ==
[2024-11-14 22:39] VITALS: BP 145/99; PULSE 118; RESP 22; TEMP 36.4; O2SAT 100; BMI 36.7
[2024-11-14 22:57] VITALS: BP 152/101; PULSE 102; O2SAT 98
--- NOTE | 2024-11-14 22:57 | HMH.EDGENADL ---
Discharge Plan Disposition Patient Disposition: Home, Self-Care Condition: Good Prescriptions Prescriptions: New nitrofurantoin macrocrystal 100 mg capsule 100 mg PO BID 5 Days Qty: 10 0RF Rx Instructions: must administer with a meal/food No Action prazosin 1 mg capsule 1 mg PO DAILY naltrexone 50 mg tablet 50 mg PO DAILY sertraline 100 mg tablet 100 mg PO DAILY aripiprazole 10 mg tablet 10 mg PO DAILY bupropion HCl 150 mg tablet extended release 24 hr 150 mg PO DAILY famotidine [Pepcid] 20 mg tablet 20 mg PO BID 42 Days Qty: 84 0RF lidocaine 5 % adhesive patch,medicated 1 patch topical DAILY PRN (Reason: pain) Qty: 30 0RF Rx Instructions: leave on most painful area for up to 12 hrs Referrals Follow up/Referrals: Provider,Referral, MD [Primary Care Provider] - See instructions Activity Restrictions/Add. Instructions Additional Instructions/Restrictions: Please take antibiotics as prescribed for treatment of possible urinary tract infection. Please take Tylenol and ibuprofen as needed for pain. Please follow-up with your primary care provider. Please return to the emergency department if you develop any new or worsening symptoms or become concerned for your health. Clinical Impressions Clinical Impression: UTI (urinary tract infection), Pain, rectum Instructions Patient Instructions: DI for Acute Abdominal Pain Print Language Print Language: Bulgarian Discharge ED Provider: Miles Dey Adult HPI General Chief complaint: Abdominal Pain Stated complaint: abdominal pain radiating down leg Time Seen by Provider: 11/14/24 22:57 Mode of Arrival: Ambulatory Description of Symptoms (Recalled from ER Triage Doc. by RN): pt c/o of abdominal pain that started around an hour ago0. Pain located below belly button and radiating towards both sides and back. pain rated at 8.5/20. no n/v/d History of Present Illness HPI narrative: 24-year-old female with no significant past medical history presents for rectal and abdominal pain. She reports that she was pushing going to the bathroom when she had a sharp pain in her rectum and abdomen. Reports it is low anterior and radiates to the back. Denies any laterality. She reports that this has happened before she reports she normally goes to the bathroom 1-2 times a day, stools are normally a little hard. Denies any urinary symptoms. Denies any prior abdominal surgery. Her menstrual cycle is very irregular and she is not sure when her next one will be. She does not believe she is likely to be . She denies any history of hemorrhoids, anal fissure, prolapse etc. Related Data Home Medications ?Medication ?Instructions ?Recorded ?Confirmed aripiprazole 10 mg tablet 10 mg PO DAILY 07/25/24 07/25/24 bupropion HCl 150 mg 24 hr tablet, 150 mg PO DAILY 07/25/24 07/25/24 extended release naltrexone 50 mg tablet 50 mg PO DAILY 07/25/24 07/25/24 prazosin 1 mg capsule 1 mg PO DAILY 07/25/24 07/25/24 sertraline 100 mg tablet 100 mg PO DAILY 07/25/24 07/25/24 Previous Rx's ?Medication ?Instructions ?Recorded famotidine 20 mg tablet (Pepcid) 20 mg PO BID 6 weeks #84 tabs 07/25/24 lidocaine 5 % topical patch 1 patch topical DAILY PRN pain #30 09/13/24 ea nitrofurantoin macrocrystal 100 mg 100 mg PO BID 5 days #10 caps 11/15/24 capsule Allergies Allergy/AdvReac Type Severity Reaction Status Date / Time No Known Allergies Allergy Verified 06/13/24 11:11 [facility] Disclaimer: The information contained in this section may have been updated after the patient was seen, as this information can be updated by other users. Medical History (Updated 11/15/24 @ 01:08 by Miles Dey MD) Colitis Anxiety Depression Thoughts of self harm Social History (Updated 07/25/24 @ 16:48 by Francheska Chavez RN) Smoking Status: Current every day smoker alcohol intake: never current occupational status: employed Travel in the last 8 weeks: None Have you lived/traveled outside [place] in past 30 days?: No Contact w/someone who lives/traveled outside US past 30 days?: No Exposure to someone with infectious disease in past 14 days?: No Do you have a fever (greater than 100.4 F or 38 C)?: No Have you tested positive for COVID-19: No Exposed to someone with COVID-19 in past 14 days?: No Do you have a sore throat?: No Do you have a cough?: No Do you have any weakness?: No Do you have any diarrhea?: No Are you experiencing any unusual bleeding?: No Do you have any muscle aches/pain?: No Do you have any abdominal pain?: No Are you experiencing loss of taste or smell?: No ROS Obtained: Yes All systems reviewed & no additional complaints except as documented Physical Exam General General appearance: alert and in no apparent distress Head Head exam: atraumatic and normocephalic Eye Eye exam: Present normal appearance, PERRL and EOMI ENT ENT exam: Present normal oropharynx and normal external ear exam Neck Neck exam: Present normal inspection and full ROM Chest Chest inspection: Present normal inspection and symmetric chest wall rise; Absent tenderness Respiratory Respiratory exam: Present normal lung sounds bilaterally; Absent respiratory distress Cardiovascular Cardiovascular exam: Present regular rate and normal rhythm Abdominal Exam Abdominal exam: Present soft; Absent distention, tenderness or guarding Extremities Exam Extremities exam: Present normal inspection; Absent edema or joint swelling Back Exam Back exam: Present normal inspection; Absent tenderness Neurological Exam Neurological exam: Present alert and oriented X3; Absent motor sensory deficit Psychiatric Psychiatric exam: Present normal affect and normal mood Skin Skin exam: Present warm, dry and normal color Lymphatic Lymphatic Findings: no adenopathy Medical Decision Making Medical Records Medical records reviewed: Yes I reviewed the patient's medical records. Screening: Per USPSTF and CDC recommendations, given the prevalence of disease in our region, it is our hospital?s policy to screen for HIV and viral Hepatitis for all patients aged 18 and over and those with ongoing risk factors. Joseph Inquiry Pt receiving controlled substance: No Joseph was queried for this patient: No Vital Signs: 11/14/24 22:39 11/14/24 22:57 11/15/24 00:50 Temperature 97.6 F Temperature Source Oral Pulse Rate 102 H 98 H Pulse Rate [Left] 118 H Respiratory Rate 22 Blood Pressure 152/101 H 131/89 Blood Pressure [Right Arm] 145/99 H Blood Pressure Mean [Right Arm] 114 02 Sat by Pulse Oximetry 100 98 97 Oxygen Delivery Method Room Air Room Air 11/15/24 01:11 11/15/24 01:18 Temperature 97.9 F 97.9 F Temperature Source Oral Pulse Rate 88 88 Pulse Rate [Left] Respiratory Rate 16 20 Blood Pressure 136/95 H 136/95 H Blood Pressure [Right Arm] Blood Pressure Mean [Right Arm] 02 Sat by Pulse Oximetry Oxygen Delivery Method Room Air Room Air Lab Data Lab results reviewed: Yes I reviewed the patient's lab results. Lab Results 11/14/24 23:20: WBC 10.7, RBC 5.09, Hgb 13.9, Hct 41.4, MCV 81.3, MCH 27.3, MCHC 33.6, RDW 13.7, Plt Count 277, MPV 9.7, Neut % (Auto) 69.4, Lymph % (Auto) 21.2, [place] % (Auto) 5.7, Eos % (Auto) 2.8, Baso % (Auto) 0.6, Neut # (Auto) 7.4, Lymph # (Auto) 2.3, [place] # (Auto) 0.6, Eos # (Auto) 0.3, Baso # (Auto) 0.1, Sodium 137, Potassium 3.8, Chloride 103, Carbon Dioxide 23, Anion Gap 14.8, BUN 10, Creatinine 0.80, Estimated Creat Clear 210, Estimated GFR 88, Est GFR ( Amer) 107, Glucose 108 H, Calcium 9.3, Total Bilirubin 0.4, AST 31, ALT 32, Alkaline Phosphatase 69, Total Protein 7.3, Albumin 4.1, Globulin 3.2, Albumin/Globulin Ratio 1.3, Serum HCG, Qual Negative 11/15/24 00:28: Urine Color Yellow, Urine Appearance Clear, Urine pH 6.0, Ur Specific [place] >= 1.030, Urine Protein Negative, Urine Glucose (UA) Negative, Urine Ketones Negative, Urine Blood 1+ A, Urine Nitrate Negative, Urine Bilirubin Negative, Urine Urobilinogen 0.2, Ur Leukocyte Esterase 1+ A, Urine RBC 5-10, Urine WBC 5-10, Ur Squamous Epith Cells 3-5, Urine Bacteria 2+, Urine Mucus 1+ 11/14/24 23:20 11/14/24 23:20 Orders (Tests/Meds): ED MEDICATIONS Discontinued Medications Generic Name Dose Route Start Last Admin Trade Name Freq PRN Reason Stop Dose Admin Nitrofurantoin Macrocrystals 100 mg 11/15/24 01:08 11/15/24 01:10 Nitrofurantoin 100mg Capsule PO 11/15/24 01:09 100 mg ONCE ONE Administration ORDERS Category Date Time Status KUB (single view) [XR KUB] Stat Exams 11/14/24 23:15 Completed CBC w/Auto Diff [Complete Blood Count Auto Diff] Stat Lab 11/14/24 23:20 Completed CMP [Comprehensive Metabolic Panel] Stat Lab 11/14/24 23:20 Completed HCG Qualitative, Serum Stat Lab 11/14/24 23:20 Completed UA [Urinalysis and Microscopic] Stat Lab 11/15/24 00:28 Completed Urine Culture Stat Micro 11/15/24 00:28 Received Medical Decision Narrative: 24-year-old female without significant past medical history presents for rectal pain that started while pushing while having a bowel movement. She also has some anterior midline lower abdominal pain and low back pain. History was obtained via interactive discussion with patient, chart review. On arrival, patient is [afebrile, hemodynamically stable, satting appropriately, alert, oriented x4, GCS 15], moving all extremities spontaneously. Full physical exam performed and significant for no significant abdominal tenderness. I offered the patient a rectal exam which she declined. Differential includes but is not limited to constipation, UTI, ovarian pathology, ectopic , hemorrhoid, fissure Patient took Tylenol prior to arrival. Workup initiated including UA, beta-hCG, CBC CMP KUB. On re-evaluation, patient reports symptomatic improvement. Laboratory workup independently interpreted by me and significant for negative test, no significant leukocytosis or electrolyte derangement. Urinalysis does appear consistent with infection. Imaging independently interpreted by me and significant for no evidence of bowel obstruction or perforation. See radiology read for full review of final results. CT imaging was considered but deemed unnecessary given patient has a benign exam. The underlying etiology of patient's pain remains unclear, may be due to rectal stool burden. Given urinalysis is positive and patient has some low pelvic pain, we will treat for UTI with Macrobid. Patient was discharged in stable condition with instructions to return if symptoms worsen or do not improve. Procedures Risk/Benefits of Procedure(s) Were Explained: Yes Critical Care Critical Care Time Critical Care Time: No
--- NOTE | 2024-11-14 23:15 | XR_ITS ---
PROCEDURE INFORMATION: Exam: XR Abdomen Exam date and time: 11/14/2024 11:38 PM Age: 24 years old Clinical indication: Abdominal pain; Additional info: Lower abd/rectal pain TECHNIQUE: Imaging protocol: Radiologic exam of the abdomen. Views: Frontal supine view of the abdomen. 1 View. COMPARISON: CT ABDOMEN PELVIS W CON 06/13/2024 12:59 PM FINDINGS: Gastrointestinal tract: Normal. No bowel dilation. Bones/joints: Unremarkable. IMPRESSION: No acute findings.
[2024-11-14 23:26] LABS: Basophils # 0.1 K/mm3 (0-0.2); Basophils % 0.6 % (0.1-2.0); Eosinophils # 0.3 K/mm3 (0.0-0.4); Eosinophils % 2.8 % (0.1-12.0); Hematocrit 41.4 % (37.0-47.0); Hemoglobin 13.9 g/dL (12.2-16.2); Lymphocytes # 2.3 K/mm3 (0.7-4.5); Lymphocytes % 21.2 % (10-50); Mean Corpuscular HGB Conc 33.6 g/dL (31.8-35.4); Mean Corpuscular Hemoglobin 27.3 pg (27.0-31.2); Mean Corpuscular Volume 81.3 fl (81-99); Mean Platelet Volume 9.7 fl (7.4-10.4); Monocytes # 0.6 K/mm3 (0.1-1.0); Monocytes % 5.7 % (1.7-9.3); Neutrophils # 7.4 K/mm3 (1.8-7.8); Neutrophils % 69.4 % (37.0-80.0); Nucleated Red Blood Cells # 0 10^3/uL; Nucleated Red Blood Cells % 0 %; Platelet Count 277 K/mm3 (142-424); Red Blood Count 5.09 M/mm3 (4.20-5.40); Red Cell Distribution Width 13.7 % (11.5-17.5); Red Cell Distribution Width-SD 40.1 fL; White Blood Count 10.7 K/mm3 (4.8-10.8)
[2024-11-14 23:34] LABS: Alanine Aminotransferase 32 U/L (12-78); Albumin Level 4.1 g/dl (3.5-5.0); Albumin/Globulin Ratio 1.3 (1.1-1.8); Alkaline Phosphatase 69 U/L (38-126); Anion Gap 14.8 mEq/L (5-15); Aspartate Amino Transferase 31 U/L (14-36); Bilirubin,Total 0.4 mg/dl (0.2-1.3); Blood Urea Nitrogen 10 mg/dl (7-17); Calcium 9.3 mg/dl (8.4-10.2); Carbon Dioxide 23 mmol/L (22.0-30.0); Chloride 103 mmol/L (98-107); Creatinine Clearance Estimated 210 mL/min (50-200); Estimated Glomerular Filt Rate 88 ml/min (>60); GFR (African American) 107 ML/MIN (>60); Globulin 3.2 g/dL (1.3-3.2); Glucose 108 mg/dl (74-100); Potassium 3.8 mmoL/L (3.5-5.1); Sodium 137 mmol/L (136-145); Total Protein,Serum 7.3 g/dl (6.3-8.2)
[2024-11-14 23:45] LABS: HCG Qualitative, Serum Negative (Negative)
[2024-11-15 00:33] LABS: Appearance,Urine CLEAR (Clear); Bilirubin,Urine Negative (Negative); Blood, Urine 1+ (Negative); Color,Urine YELLOW (Yellow); Glucose,Urine (UA) Negative (Negative); Ketones,Urine Negative (Negative); Leukocyte Esterase,Urine 1+ (Negative); Nitrate,Urine Negative (Negative); Protein,Urine Negative (Negative); Specific Gravity, Urine >= 1.030 (1.005-1.030); Urobilinogen,Urine 0.2 EU/dl (0.2)
[2024-11-15 00:34] LABS: Microscopic, Urine URINE MICROSCOPIC (MICROSCOPIC)
[2024-11-15 00:49] LABS: Bacteria,Urine 2+ /lpf; Mucus,Urine 1+ /lpf
[2024-11-15 00:50] VITALS: BP 131/89; PULSE 98; O2SAT 97
[2024-11-15] MEDS: NITROFURANTOIN 100MG CAPSULE 100 MG PO (01:10)
[2024-11-15 01:11] VITALS: BP 136/95; PULSE 88; RESP 16; TEMP 36.6; O2SAT 98
[2024-11-15 01:18] VITALS: BP 136/95; PULSE 88; RESP 20; TEMP 36.6; O2SAT 99
== END 2024-11-15 01:18 | disposition home or self-care (01) ==
PROVIDERS: Emergency Provider Emergency Medicine
DX: R10.9 Unspecified abdominal pain (principal); N39.0 Urinary tract infection, site not specified; K62.89 Other specified diseases of anus and rectum
CPT/HCPCS: 99284; 74018; 80053; 81001; 84703; 85025; 87086

== ENCOUNTER 2024-12-14 19:48 | Emergency (ER) | payer BC, SELFPAY ==
[2024-12-14 19:55] VITALS: BP 145/101; PULSE 97; TEMP 36.8; O2SAT 99
--- NOTE | 2024-12-14 19:55 | HMH.EDGENADL ---
Discharge Plan Disposition Patient Disposition: Home, Self-Care Prescriptions Prescriptions: No Action prazosin 1 mg capsule 1 mg PO DAILY naltrexone 50 mg tablet 50 mg PO DAILY sertraline 100 mg tablet 100 mg PO DAILY aripiprazole 10 mg tablet 10 mg PO DAILY bupropion HCl 150 mg tablet extended release 24 hr 150 mg PO DAILY famotidine [Pepcid] 20 mg tablet 20 mg PO BID 42 Days Qty: 84 0RF nitrofurantoin macrocrystal 100 mg capsule 100 mg PO BID 5 Days Qty: 10 0RF Rx Instructions: must administer with a meal/food lidocaine 5 % adhesive patch,medicated 1 patch topical DAILY PRN (Reason: pain) Qty: 30 0RF Rx Instructions: leave on most painful area for up to 12 hrs Referrals Follow up/Referrals: Iris Correa [Primary Care Provider] - See instructions Activity Restrictions/Add. Instructions Additional Instructions/Restrictions: Today you were evalauted in the ED, your strep swab was negative. This is most likely a viral etiology, please use a warm salt water gargle, increase your fluid intake, take acetaminophen and ibuprofen [id number] for symptomatic relief. Follow-up as directed. Return to the ED for worsening of condition. Clinical Impressions Clinical Impression: Acute viral pharyngitis Instructions Patient Instructions: Viral Pharyngitis Print Language Print Language: Bengali Discharge ED Provider: Reza Venecs General Adult HPI <America Chen APRN - Last Filed: 12/14/24 20:25> General Chief complaint: PAIN Stated complaint: sore throat Time Seen by Provider: 12/14/24 19:51 History of Present Illness HPI narrative: Patient is a 24-year-old female PMHx anxiety (not medicated) who presents to the ED for complaints of sore throat. Patient is requesting a strep swab. Patient states she has had congestion, right ear pain and cough. Patient states she has tried [id number] Chloraseptic throat spray with no relief. Related Data Home Medications ?Medication ?Instructions ?Recorded ?Confirmed aripiprazole 10 mg tablet 10 mg PO DAILY 07/25/24 07/25/24 bupropion HCl 150 mg 24 hr tablet, 150 mg PO DAILY 07/25/24 07/25/24 extended release naltrexone 50 mg tablet 50 mg PO DAILY 07/25/24 07/25/24 prazosin 1 mg capsule 1 mg PO DAILY 07/25/24 07/25/24 sertraline 100 mg tablet 100 mg PO DAILY 07/25/24 07/25/24 Previous Rx's ?Medication ?Instructions ?Recorded famotidine 20 mg tablet (Pepcid) 20 mg PO BID 6 weeks #84 tabs 07/25/24 lidocaine 5 % topical patch 1 patch topical DAILY PRN pain #30 09/13/24 ea nitrofurantoin macrocrystal 100 mg 100 mg PO BID 5 days #10 caps 11/15/24 capsule Allergies Allergy/AdvReac Type Severity Reaction Status Date / Time No Known Allergies Allergy Verified 06/13/24 11:11 [facility] <America Chen APRN - Last Filed: 12/14/24 20:25> [facility] Disclaimer: The information contained in this section may have been updated after the patient was seen, as this information can be updated by other users. Medical History (Updated 12/14/24 @ 20:23 by America Chen APRN) Colitis Anxiety Depression Thoughts of self harm Social History (Updated 07/25/24 @ 16:48 by Francheska Chavez RN) Smoking Status: Never smoker alcohol intake: never current occupational status: employed Travel in the last 8 weeks?: None Have you lived/traveled outside US in past 30 days?: No Contact w/someone who lives/traveled outside US past 30 days?: No Exposure to someone with infectious disease in past 14 days?: No Do you have a fever (greater than 100.4 F or 38 C)?: No Have you tested positive for COVID-19?: No Exposed to someone with COVID-19 in past 14 days?: No Do you have a sore throat?: No Do you have a cough?: No Do you have any weakness?: No Do you have any diarrhea?: No Are you experiencing any unusual bleeding?: No Do you have any muscle aches/pain?: No Do you have any abdominal pain?: No Are you experiencing loss of taste or smell?: No <America Chen APRN - Last Filed: 12/14/24 20:25> ROS Obtained: Yes Systems reviewed as appropriate & no additional complaints except as documented Physical Exam <America Chen APRN - Last Filed: 12/14/24 20:25> General General appearance: alert and in no apparent distress Head Head exam: atraumatic and normocephalic Eye Eye exam: Present normal appearance and PERRL ENT ENT exam: Present other (bilateral clear TMs ) Neck Neck exam: Present normal inspection and full ROM; Absent tenderness or lymphadenopathy Chest Chest inspection: Present normal inspection and symmetric chest wall rise; Absent tenderness Respiratory Respiratory exam: Present normal lung sounds bilaterally Cardiovascular Cardiovascular exam: Present regular rate Abdominal Exam Abdominal exam: Present soft and normal bowel sounds; Absent tenderness Extremities Exam Extremities exam: Present normal inspection and full ROM Back Exam Back exam: Present normal inspection and full ROM Neurological Exam Neurological exam: Present alert and oriented X3 Psychiatric Psychiatric exam: Present normal affect and normal mood Skin Skin exam: Present warm and dry Medical Decision Making <America Chen APRN - Last Filed: 12/14/24 20:25> Medical Records Screening: Per USPSTF and CDC recommendations, given the prevalence of disease in our region, it is our hospital?s policy to screen for HIV and viral Hepatitis for all patients aged 18 and over and those with ongoing risk factors. Joseph Inquiry Pt receiving controlled substance: No Vital Signs: 12/14/24 19:55 12/14/24 20:02 12/14/24 20:24 Temperature 98.2 F 98.2 F 98 F Temperature Source Oral Pulse Rate 97 H 95 H Pulse Rate [Right] 95 H Respiratory Rate 16 16 Blood Pressure 145/101 H 132/89 Blood Pressure [Right Arm] 132/89 Blood Pressure Mean [Right Arm] 103 02 Sat by Pulse Oximetry 99 97 Oxygen Delivery Method Room Air Lab Data Lab Results 12/14/24 20:05: Group A Strep Rapid Negative Orders (Tests/Meds): ED MEDICATIONS Discontinued Medications Generic Name Dose Route Start Last Admin Trade Name Freq PRN Reason Stop Dose Admin Acetaminophen 1,000 mg 12/14/24 19:55 12/14/24 20:03 Acetaminophen 500mg Tab PO 12/14/24 19:56 1,000 mg ONCE ONE Administration ORDERS Category Date Time Status Rapid Strep Scrn Group A [Strep Scrn Group A (Rapid)] Lab 12/14/24 20:05 Completed Stat Strep Screen Confirmation Stat Micro 12/14/24 20:05 Received Medical Decision Narrative: In summary, patient is a 24-year-old female PMHx anxiety (not medicated) who presents to the ED for complaints of sore throat. Patient is requesting a strep swab. Patient states she has had congestion, right ear pain and cough. Patient states she has tried [id number] Chloraseptic throat spray with no relief. Has no other medical complaints at this time. Denies fever, chills, body aches, chest pain, shortness of breath, abdominal pain, nausea, vomiting Upon initial evaluation patient is alert, oriented and cooperative. She is hemodynamically stable. Physical exam remarkable for bilateral clear effusion. Discussed with patient that we will proceed with strep swab, symptomatically managed with acetaminophen. Strep swab negative. Discussed with patient viral pharyngitis. Please use warm salt water gargles, use acetaminophen and ibuprofen [id number]. Follow-up with your PCP. Return to ED for worsening of condition <Reza Vences MD - Last Filed: 12/14/24 21:33> Vital Signs: 12/14/24 19:55 12/14/24 20:02 12/14/24 20:24 Temperature 98.2 F 98.2 F 98 F Temperature Source Oral Pulse Rate 97 H 95 H Pulse Rate [Right] 95 H Respiratory Rate 16 16 Blood Pressure 145/101 H 132/89 Blood Pressure [Right Arm] 132/89 Blood Pressure Mean [Right Arm] 103 02 Sat by Pulse Oximetry 99 97 Oxygen Delivery Method Room Air Lab Data Lab Results 12/14/24 20:05: Group A Strep Rapid Negative Orders (Tests/Meds): ED MEDICATIONS Discontinued Medications Generic Name Dose Route Start Last Admin Trade Name Peterq PRN Reason Stop Dose Admin Acetaminophen 1,000 mg 12/14/24 19:55 12/14/24 20:03 Acetaminophen 500mg Tab PO 12/14/24 19:56 1,000 mg ONCE ONE Administration ORDERS Category Date Time Status Rapid Strep Scrn Group A [Strep Scrn Group A (Rapid)] Lab 12/14/24 20:05 Completed Stat Strep Screen Confirmation Stat Micro 12/14/24 20:05 Received Medical Decision Narrative: In summary, patient is a 24-year-old female PMHx anxiety (not medicated) who presents to the ED for complaints of sore throat. Patient is requesting a strep swab. Patient states she has had congestion, right ear pain and cough. Patient states she has tried [id number] Chloraseptic throat spray with no relief. Has no other medical complaints at this time. Denies fever, chills, body aches, chest pain, shortness of breath, abdominal pain, nausea, vomiting Upon initial evaluation patient is alert, oriented and cooperative. She is hemodynamically stable. Physical exam remarkable for bilateral clear effusion. Discussed with patient that we will proceed with strep swab, symptomatically managed with acetaminophen. Strep swab negative. Discussed with patient viral pharyngitis. Please use warm salt water gargles, use acetaminophen and ibuprofen [id number]. Follow-up with your PCP. Return to ED for worsening of condition I was consulted by the MARCO, and we discussed the complexity of the problems being addressed. I approved the treatment and management plan for this patient's care in the Emergency Department, thus performing a substantive portion of the medical decision making. Reza Vences MD Critical Care <America Chen APRN - Last Filed: 12/14/24 20:25> Critical Care Time Critical Care Time: No
[2024-12-14 20:02] VITALS: BP 132/89; PULSE 95; RESP 16; TEMP 36.8; O2SAT 97; BMI 37.0
[2024-12-14] MEDS: ACETAMINOPHEN 500MG TAB 1000 MG PO (20:03)
[2024-12-14 20:15] LABS: Strep Scrn Group A (Rapid) Negative (Negative)
[2024-12-14 20:24] VITALS: BP 132/89; PULSE 95; RESP 16; TEMP 36.6
== END 2024-12-14 20:33 | disposition home or self-care (01) ==
PROVIDERS: Nurse Practitioner; Emergency Provider Emergency Medicine; PCP Nurse Practitioner Family
DX: J02.9 Acute pharyngitis, unspecified (principal); H92.01 Otalgia, right ear; B34.9 Viral infection, unspecified
CPT/HCPCS: 87430; 99283

== ENCOUNTER 2025-04-19 04:07 | Emergency (ER) | payer BC, SELFPAY ==
--- OUTSIDE RECORDS SUMMARY | 2025-04-18 14:15 | XMS_ITS | Encounter Summary ---
Author Organization Healthcare Address [address] [place] [address] Care Team Providers Care Telephone Surveyor Name Role Phone Iris Correa APRN Primary Care Provider [phone] Reason for Visit * Reason Comments Pelvic Pain Pt reports+ severe p ain with last cycle on 03/18+ changing pads qhr, muscle pain all over+ severe pain for last 48 hrs, can't get out of bed Encounter Details Date Type Department Care Team (Late st Contact Info) Description 04/18/2025 2:15 PM EDT Office Visit Obstetrics & Gynecology [address] [place] [address] Alma Townsend APRN [address] [place] [address] Urinary frequency (Primary Dx) Social History Tobacco Use Types Packs/Day Years Used Date Smoking Tobacco: Never Passive Smoke Exposure: Never Smokeless Tobacco: Never Alcohol Use Standard Drinks/Week Comments Not Currently 0 (1 standard drink = 0.6 oz pur e alcohol) Humiliation, Afraid, Rape, and Kick questionnair e Answer Date Recorded Within the last year, have y ou been afraid of your partner or ex-partner? No 12/28/2024 Within the last year, have y ou been humiliated or emotionally abused in other ways by your partner or ex-partner? No Within the last year, have y ou been kicked, hit, slapped, or otherwise physically hurt by your partner or ex-partner? No 12/28/2024 Within the last year, have y ou been raped or forced to have any kind of sexual activity by your partner or ex-partner? No 12/28/2024 PHQ-2 Answer Date Recorded Patient Health Questionnaire-2 Score 0 04/18/2025 Hunger Vital Sign Answer Date Recorded Within the past 12 months, y ou worried that your food would run out before you got the money to buy more. Never true 12/29/19 Within the past 12 months, t he food you bought just didn't last and you didn't have money to get more. Never true 12/28/2024 PRAPARE - Transportation Answer Date Re corded In the past 12 months, has l ack of transportation kept you from medical appointments or from getting medications? No 12/07 In the past 12 months, has l ack of transportation kept you from meetings, work, or from getting things needed for daily living? No 12/28/2024 Housing Stability Vital Sign Answer Albino e Recorded In the last 12 months, was t here a time when you were not able to pay the mortgage or rent on time? No 03/01/2024 In the last 12 months, how many places have you lived? 2 03/01/2024 In the last 12 months, was t here a time when you did not have a steady place to sleep or slept in a care home (including now)? No 03/01/2024 PHQ-9 Answer Date Recorded Patient Health Questionnaire-9 Score 8 12/28/2024 Housing Stability Vital Sign Answer Albino e Recorded In the last 12 months, was t here a time when you were not able to pay the mortgage or rent on time? No 12/28/2024 In the past 12 months, how m any times have you moved where you were living? 0 12/28/2024 At any time in the past 12 m [facility], were you homeless or living in a care home (including now)? No 12/28/2024 AUDIT-C Answer Date Recorded Q1: How often do you have a drink containing alcohol? Never 02/01/2025 Q2: How many drinks containi ng alcohol do you have on a typical day when you are drinking? Patient does not drink Q3: How often do you have si x or more drinks on one occasion? Never 02/01/2025 Safety and Environment Answer Date Valentin rded Do you worry that your child may have been physically abused? No 09/03/2024 Do you worry that your child may have been sexua lly abused? No 09/03/2024 Are there any guns kept in o r around your home or where your child spends time? No 09/03/2024 Guns Unloaded or Locked Away Not on file Utilities Answer Date Recorded In the past 12 months has [employer], gas, oil, or water [employer] threatened to shut off services in your home? No 12/28/2024 PHQ-2A Answer Date Recorded Patient Health Questionnaire-2 Score 0 11/12/2022 Comments No Sex and Gender Information Value Date Recorded Sex Assigned at Not on file Legal Sex Female 8:50 PM EDT Gender Identity Not on file Sexual Orientation Not on file documented as of this encounter Last Filed Vital Signs Vital Sign Reading Time Taken Comments Blood Pressure 127/81 04/18/2025 2:27 PM EDT Pulse 92 04/18/2025 2:27 PM EDT Temperature 36.7 C (98 F) 04/18/2025 2:27 PM EDT Respiratory Rate - - Oxygen Saturation 99% 04/18/2025 2:27 PM EDT Inhaled Oxygen Concentration - - Weight 118 kg (259 lb 7.7 oz) 04/18/2025 2:27 PM EDT Height - - Body Mass Index 35.19 02/01/2025 3:41 PM EDT documented in this encounter Functional Status * Over the past 2 weeks, how often have you been bothered by any of the following problems? Question Answer Date of Assessment Author Little interest or pleasure in doing things Not at all 04/18/2025 2:28 PM EDT Sandra Barragan RN Feeling down, depressed, or hopeless Not at all 04/18/2025 2:28 PM EDT Sandra Barragan RN Patient Health Questionnaire -2 Score 0 04/18/2025 2:28 PM EDT Sandra Barragan RN * If you checked off any problems on this questionnaire so far, Question Answer Date of Assessment Author How difficult have these problems made it for you to do your work, take care of things at home, or get along with other people? Not difficult at all 04/18/2025 2:28 PM EDT Sandra Barragan RN documented as of this encounter Miscellaneous Notes * Progress Notes - Alma Townsend, SCOOPER - 04/18/2025 2:15 PM EDT Gynecology Progress Note Subjective Magda is a 25yo who presents for possible UTI. C/o urinary frequency/urgency x1 week, although notes worsening symptoms over the last few days. Denies dysuria. Associated low back pain and suprapubic pain. Reports pain radiates down her legs. Also notes fatigue, dizziness, and joint pain. Denies fever- but has had chills and muscle aches. Hx of UTI since childhood. Reports she typically is diagnosed w/ this a few times per year. Has never seen a Urologist. Reports she does not urinate after intercourse consistently. Review of Systems Constitutional: Positive for chills and fatigue. HENT: Negative. Eyes: Negative. Respiratory: Negative. Cardiovascular: Negative. Gastrointestinal: Negative. Endocrine: Negative. Genitourinary: Positive for frequency, pelvic pain and urgency. Negative for dysuria and flank pain. Musculoskeletal: Positive for back pain and myalgias. Skin: Negative. Allergic/Immunologic: Negative. Neurological: Positive for dizziness. Hematological: Negative. Psychiatric/Behavioral: Negative. Objective Visit Vitals BP 127/81 Pulse 92 Temp 36.7 ??C (98 ??F) Physical Exam Constitutional: Appearance: Normal appearance. Genitourinary: Vulva normal. HENT: Head: Normocephalic and atraumatic. Right Ear: External ear normal. Left Ear: External ear normal. Nose: Nose normal. Cardiovascular: Rate and Rhythm: Normal rate. Pulmonary: Effort: Pulmonary effort is normal. Abdominal: General: Abdomen is flat. Palpations: Abdomen is soft. Musculoskeletal: General: Normal range of motion. Cervical back: Normal range of motion. Neurological: General: No focal deficit present. Mental Status: She is alert and oriented to person, place, and time. Skin: General: Skin is warm and dry. Psychiatric: Mood and Affect: Mood normal. Behavior: Behavior normal. Thought Content: Thought content normal. Judgment: Judgment normal. Vitals and nursing note reviewed. Assessment/Plan Assessment & Plan Urinary frequency Orders: POCT Urinalysis Dipstick sulfamethoxazole-trimethoprim (Bactrim DS) 800-160 MG tablet; Take 1 tablet by mouth 2 times a day. Urine Culture - Abnormal UA. Culture sent. Rx Bactrim. Educated pt on medication, usage, and possible side effects. - Push fluids. Tylenol/ibuprofen prn. - Education provided on prevention. Encouraged pt to urinate after intercourse. Hygiene discussed. - Discussed worsening s/s and when to RTC/report to ER. - Patient agrees with POC. All questions answered. Time Spent: I personally spent a total of 26 minutes on this encounter. This time includes face to face with patient, counseling and discussion and/or coordination of care. documented in this encounter Plan of Treatment Upcoming Encounters Date Type Department Care Team (Late st Contact Info) Description 05/02/2025 2:15 PM EDT Office Visit Obstetrics & Gynecology [address] [place] [address] Alma Townsend APRN [address] [place] [address] Pending Results Name Type Priority Associated Diagnoses Date /Time Urine Culture Microbiology Routine Urinary frequency 04/18/2025 2:49 PM EDT documented as of this encounter Procedures Procedure Name Priority Date/Time Associated Diagnosis Comments POCT URINALYSIS DIPSTICK Routine 04/18/2025 2:37 PM EDT Urinary frequency documented in this encounter Results * (ABNORMAL) POCT Urinalysis Dipstick (04/18/2025 2:37 PM EDT) POCT Urine Color Red POCT Urine Clarity Cloudy POCT Glucose Urine 100(A) Negative mg/dL POCT Bilirubin, Urine Large(A) Negative POCT Ketones, Urine 15(A) Negative mg/dL POCT Specific Diamond, Urine 1.010 POCT Blood, Urine Large(A) Negative POCT pH, Urine 8.5(A) 5.0 to 8.0 POCT Protein, Urine >=300(A) Negative mg/dL POCT Urobilinogen, Urine 4.0(A) 0.2, 1 E.U./dL POCT Nitrite, Urine Positive(A ) Negative POCT Leukocyte Esterase, Urine Large(A) Negative Test Strip Lot Number [id number] Test Strip Lot Expiration 06/2025 Urine Urine specimen obtained by clean catch procedure / Unknown 04/18/2025 2:37 PM EDT Alma Townsend APRN POINT OF CARE TEST ENTER/ED IT ORDERABLES Final Result documented in this encounter Visit Diagnoses Diagnosis Urinary frequency- Primary documented in this encounter Additional Health Concerns Assessment Noted Time PHQ-9 Depression Total Score: 8 12/29/19 25 2:57 PM EDT A fall risk assessment has been complete d for the patient 04/18/2025 2:28 PM EDT A Body Mass Index follow-up plan has been documented for the patient 04/18/2025 2:58 PM EDT documented as of this encounter Care Teams Telephone Surveyor Relationship Specialty Start Date End Date Iris Correa APRN [address] [address] PCP - General 12/19/20 documented as of this encounter
[2025-04-19 04:15] VITALS: BP 128/103; PULSE 78; RESP 17; TEMP 36.7; O2SAT 100; BMI 35.1
--- OUTSIDE RECORDS SUMMARY | 2025-04-19 04:16 | XMS_ITS | Encounter Summary ---
Author Organization [facility] Address [address] [place] [address] Care Team Providers Care Gold Burnisher Name Role Phone Iris Correa APRN Primary Care Provider [phone] Encounter Details Date Type Department Care Team (Late st Contact Info) Description 04/16/2025 Telephone [facility] [address] [place] [address] Iris Correa APRN [address] [place] [address] Social History Tobacco Use Types Packs/Day Years [...] money to buy more. Never true 12/29/19 25 Within the past 12 months, t he [...] place to sleep or slept in a intermediate (including now)? No 03/01/2024 PHQ-9 Answer Date [...] any time in the past 12 m [facility], were you homeless or living in a intermediate (including now)? No 12/28/2024 AUDIT-C Answer Date [...] Recorded In the past 12 months has e electric, gas, oil, or water company threatened to shut off services in your home? No 12/28/2024 PHQ-2A Answer Date Recorded Patient Health Questionnaire-2 Score 0 11/12/2022 Comments No Sex and Gender Information Value Date Recorded Sex Assigned at Not on file Legal Sex Female 8:50 PM EDT Gender Identity Not on file Sexual Orientation Not on file documented as of this encounter Functional Status * Over the [...] as of this encounter Miscellaneous Notes * Telephone Encounter - Cherie Campos - 04/16/2025 1:30 PM EDT Spoke with Magda regarding her symptoms, back pain, body aches, family history of endometriosis ,Advised she should schedule with gynecology for evaluation if concerned about endometriosis * Telephone Encounter - Sophia Bruce - 04/16/2025 12:12 PM EDT Clinical Concern/Question Reason for Call: Pt requesting a call back to discuss history of endometriosis in her family. Stated she is having pain and would like to speak with a triage nurse. Pls advise. Thank you! Best contact number: [phone] (mobile) Optimal time of day to reach caller: ANYTIME Additional comments/information from caller: None Note: Please do not reply to this message. Follow-up communication and further actions as a result of this message need to be communicated with the patient directly, if the patient is not active onMyChart. If the patient is active on MyChart, they will receive notification of the communication/outcome via [facility]. documented in this encounter Plan of Treatment Upcoming Encounters Date Type Department Care Team (Late st Contact Info) Description 05/02/2025 2:15 PM EDT Office Visit Obstetrics & Gynecology [address] [place] [address] Alma Townsend APRN [address] [place] [address] documented as of this encounter Visit Diagnoses Not on filedocumented in this encounter Additional Health Concerns Assessment Noted Time PHQ-9 Depression Total Score: 8 12/29/19 25 2:57 PM EDT A fall risk assessment has been complete d for the patient 07/12/2024 2:48 PM EST A Body Mass Index follow-up plan has been documented for the patient 01/04/2025 3:45 PM EDT documented as of this encounter Care Teams Gold Burnisher Relationship Specialty Start Date End Date Iris Correa APRN [address] [place] [address] PCP - General 12/19/20 documented as of this encounter
--- OUTSIDE RECORDS SUMMARY | 2025-04-19 04:16 | XMS_ITS | Encounter Summary ---
Author Organization Healthcare Address [address] [place] [address] Care Team Providers Care 2Nd Grade Teacher Name Role Phone Iris Correa APRN Primary Care Provider [phone] Encounter Details Date Type Department Care Team (Late st Contact Info) Description 11/08/2022 Outside Procedure External Location [address] [place] [address] Provider, [place] Social History Tobacco Use Types Packs/Day Years Used Date Smoking Tobacco: Never Smokeless Tobacco: Never PHQ-2 Answer Date Recorded Patient Health Questionnaire-2 Score 0 11/12/2022 PHQ-2A Answer Date Recorded Patient Health Questionnaire-2 Score 0 11/12/2022 Comments Unknown Sex and Gender Information Value Date Recorded Sex Assigned at Not on file Legal Sex Female 8:50 PM EDT Gender Identity Not on file Sexual Orientation Not on file documented as of this encounter Plan of Treatment Upcoming Encounters Date Type Department Care Team (Late st Contact Info) Description 05/02/2025 2:15 PM EDT Office Visit Obstetrics & Gynecology [address] [place] [address] Alma Townsend APRN [address] [place] [address] documented as of this encounter Procedures Procedure Name Priority Date/Time Associated Diagnosis Comments XR FINGERS LEFT 2+ VIEWS 11/08/2022 8:34 AM EDT documented in this encounter Results * XR Fingers Left 2+ Views (11/08/2022 8:34 AM EDT) Anatomical Region Laterality Modality Upper Extremities, Fingers Left Digit al Radiography 11/08/2022 8:34 AM EDT Narrative 11/08/2022 9:07 [place] [address] Name: PHILL ORONA Exam Date: 11/08/2022 : 2000 Age 22 Gender: F Physician: DEBI JENKINS Facility: [facility] Facility HSV: Outpatient Exam: FINGER(S) MIN 2V LT THIRD DIGIT, THREE VIEW HISTORY: Left third digit pain, cat bite FINDINGS: Three views show no evidence of an acute, displaced fracture or dislocation of the visualized bony architecture. The joint spaces appear normal. There is no radiopaque foreign body identified. IMPRESSION: No acute bony abnormality. Consider MRI if clinically warranted. The films were reviewed, interpreted, and dictated by Dr. Ria Stoner Transcribed by Ramírez Orona PA-C Dictated By: RIA STONER Transcribed By: Ria Stoner Transcribed On: 11/08/2022 8:55 AM Electronically signed by: RIA STONER 11/08/2022 Thank you for referring PHILL ORONA to [facility]. Legally authenticated by POPE RIA Oliva 2022-11-08 08:55:56 Procedure Note Provider, [facility] [place] - 11/08/2022 [place] [address] Name: PHILL ORONA Exam Date: 11/08/2022 : 2000 Age 22 Gender: F Physician: DEBI JENKINS Facility: [facility] Facility HSV: Outpatient Exam: FINGER(S) MIN 2V LT THIRD DIGIT, THREE VIEW HISTORY: Left third digit pain, cat bite FINDINGS: Three views show no evidence of an acute, displaced fractureor dislocation of the visualized bony architecture. The joint spaces appear normal. There is no radiopaque foreign body identified. IMPRESSION: No acute bony abnormality. Consider MRI if clinically warranted. The films were reviewed, interpreted, and dictated by Dr. Ria Stoner Transcribed by Ramírez Orona PA-C Dictated By: RIA STONER Transcribed By: Ria Stoner Transcribed On: 11/08/2022 8:55 AM Electronically signed by: RIA STONER 11/08/2022 Thank you for referring JESUS PHILL to [facility]. Legally authenticated by POPE RIA Oliva 2022-11-08 08:55:56 [facility] Provider IMG XR PROCEDURES Fi nal Result documented in this encounter Visit Diagnoses Not on filedocumented in this encounter Care Teams 2Nd Grade Teacher Relationship Specialty Start Date End Date Iris Correa APRN [address] [place] [phone] PCP - General 12/19/20 documented as of this encounter
--- OUTSIDE RECORDS SUMMARY | 2025-04-19 04:16 | XMS_ITS | Encounter Summary ---
Author Organization [facility] Address [address] [place] [address] Care Team Providers Care Store Operations Manager Name Role Phone Iris Correa APRN Primary Care Provider [phone] Encounter Details Date Type Department Care Team (Late st Contact Info) Description 04/17/2024 Outside Procedure External Location [address] [place] [address] Edwige Courtney, LUPE, DNP [address] [place] [id number] Social History Tobacco Use Types Packs/Day Years Used Date Smoking Tobacco: Never Passive Smoke Exposure: Never Smokeless Tobacco: Never Humiliation, Afraid, Rape, and Kick questionnair e Answer Date Recorded Within the last year, have y ou been afraid of your partner or ex-partner? No 03/01/2024 Within the last year, have y ou been humiliated or emotionally abused in other ways by your partner or ex-partner? No Within the last year, have y ou been kicked, hit, slapped, or otherwise physically hurt by your partner or ex-partner? No 03/01/2024 Within the last year, have y ou been raped or forced to have any kind of sexual activity by your partner or ex-partner? No 03/01/2024 PHQ-2 Answer Date Recorded Patient Health Questionnaire-2 Score 4 03/30/2024 Hunger Vital Sign Answer Date Recorded Within the past 12 months, y ou worried that your food would run out before you got the money to buy more. Never true 03/01/20 24 Within the past 12 months, t he food you bought just didn't last and you didn't have money to get more. Never true 03/01/2024 PRAPARE - Transportation Answer Date Re corded In the past 12 months, has l ack of transportation kept you from medical appointments or from getting medications? No 02/06 In the past 12 months, has l ack of transportation kept you from meetings, work, or from getting things needed for daily living? No 03/01/2024 Housing Stability Vital Sign Answer Albino e [...] place to sleep or slept in a fci (including now)? No 03/01/2024 PHQ-9 Answer Date Recorded Patient Health Questionnaire-9 Score 8 03/30/2024 Safety and Environment Answer Date Valentin rded Do you worry that your child may have been physically abused? No 03/01/2024 Do you worry that your child may have been sexua lly abused? No 03/01/2024 Are there any guns kept in o r around your home or where your child spends time? No 03/01/2024 Guns Unloaded or Locked Away Not on file Utilities Answer Date Recorded In the past 12 months has th e [employer], gas, oil, or water company threatened to shut off services in your home? No 03/01/2024 PHQ-2A Answer Date Recorded Patient Health Questionnaire-2 [...] EDT Office Visit Obstetrics & Gynecology [address] [place] [address] Alma Townsend, TRANSLATOR AND INTERPRETER [address] [place] [address] documented as of this encounter Procedures Procedure Name Priority Date/Time Associated Diagnosis Comments MR HEAD W AND WO IV CONTRAST 04/17/2024 2:50 PM EDT documented in this encounter Results * MR Head w and wo IV Contrast (04/17/2024 2:50 PM EDT) Anatomical Region Laterality Modality Head Magnetic Resonan ce 04/17/2024 2:50 PM EDT Narrative 04/19/2024 1:04 PM EDT [facility] [address] [place] [address] Name: PHILL ORONA Exam Date: 04/17/2024 : 2000 Age 24 years Gender: F Physician: Edwige Courtney Facility: [facility] Facility HSV: Outpatient Exam: MRI BRAIN W/W/O EXAMINATION: MR BRAIN WITHOUT THEN WITH IV CONTRAST INDICATION: elevated prolactin level TECHNIQUE: Multiplanar, multisequence MRI of the brain.Images acquired before and following IV administration of gadolinium-based contrast. 20 mL MultiHance. Unless specified, no imaging follow-up is recommended for incidental findings. COMPARISON: CT brain without contrast dated May 18, 2018. FINDINGS: A normal size, shape and configuration of the pituitary gland. Examination was not optimized for evaluation of the pituitary gland. No transection or dynamic postcontrast imaging was performed. No abnormal thickening of the pituitary stalk. Normal enhancement of the stomach. No obvious pituitary microadenoma. Normal appearance of the clivus, optic chiasm, suprasellar region, corpus callosum, pineal region and quadrigeminal plate.The cerebral aqueduct appears patent. No cerebellar tonsillar ectopia. The visualized portion of the cervical spinal cord appears normal. Normal volume of the cerebellar hemispheres.The vermis appears intact. The fourth ventricle is midline and is not dilated.No cerebellopontine angle cistern mass is identified.The seventh and eighth cranial nerve complexes are unremarkable. No abnormality is identified within the visualized portions of the internal auditory canals. No abnormal avendano or white matter signal. There is no midline shift or mass effect.No abnormal extra-axial mass is identified.The ventricular system is of normal size and configuration. No abnormal intra-axial enhancement or abnormal meningeal thickening or enhancement. No evidence for restricted diffusion. No obvious orbital abnormality. Visualized portions of the paranasal sinuses and mastoid air cells appear clear. No abnormality is identified within the visualized portions of the nasopharynx, oropharynx, parotid glands or skull base. IMPRESSION: 1. LIMITED EVALUATION OF THE PITUITARY GLAND. NO EVIDENCE OF A PITUITARY MACROADENOMA. NO OBVIOUS MICROADENOMA. MICROADENOMA CANNOT BE ENTIRELY EXCLUDED BY THIS EXAMINATION UP TO 30% OF MICROADENOMAS MAY ONLY BE DEMONSTRATED WITH DYNAMIC POSTCONTRAST IMAGING. 2. UNREMARKABLE MRI APPEARANCE OF THE BRAIN. Legally authenticated by PAULINA SKINNER 2024-04-17 15:52:46 Electronically signed by:Juan C Antonio DO04/19/2024 01:01 PM EDT Dictated By: Juan C Antonio Transcribed By: Transcribed On: 04/17/2024 3:52 PM Electronically signed by: Juan C Antonio 04/17/2024 Thank you for referring PHILL ORONA to [facility]. Legally authenticated by PAULINA SKINNER 2024-04-17 15:52:46 Procedure Note Provider, [facility] - 04/19/2024 [place] [address] Name: PHILL ORONA Exam Date: 04/17/2024 : 2000 Age 24 years Gender: F Physician: Edwige Courtney Facility: [facility] Facility HSV: Outpatient Exam: MRI BRAIN W/W/O EXAMINATION: MR BRAIN WITHOUT THEN WITH IV CONTRAST INDICATION: elevated prolactin level TECHNIQUE: Multiplanar, multisequence MRI of the brain.Images acquired before and following IV administration of gadolinium-based contrast. 20mL MultiHance. Unless specified, no imaging follow-up is recommended for incidentalfindings. COMPARISON: CT brain without contrast dated May 18, 2018. FINDINGS: A normal size, shape and configuration of the pituitary gland.Examination was not optimized for evaluation of the pituitary gland. No transectionor dynamic postcontrast imaging was performed. No abnormal thickening ofthe pituitary stalk. Normal enhancement of the stomach. No obvious pituitary microadenoma. Normal appearance of the clivus, optic chiasm, suprasellar region,corpus callosum, pineal region and quadrigeminal plate.The cerebral aqueduct appears patent. No cerebellar tonsillar ectopia. The visualized portionof the cervical spinal cord appears normal. Normal volume of the cerebellar hemispheres.The vermis appears intact.The fourth ventricle is midline and is not dilated.No cerebellopontine angle cistern mass is identified.The seventh and eighth cranial nervecomplexes are unremarkable. No abnormality is identified within the visualizedportions of the internal auditory canals. No abnormal avendano or white matter signal. There is no midline shift ormass effect.No abnormal extra-axial mass is identified.The ventricular system is of normal size and configuration. No abnormal intra-axial enhancement or abnormal meningeal thickening or enhancement. No evidence for restricted diffusion. No obvious orbital abnormality. Visualized portions of the paranasal sinuses and mastoid air cellsappear clear. No abnormality is identified within the visualized portions of the nasopharynx, oropharynx, parotid glands or skull base. IMPRESSION: 1. LIMITED EVALUATION OF THE PITUITARY GLAND. NO EVIDENCE OF A PITUITARY MACROADENOMA. NO OBVIOUS MICROADENOMA. MICROADENOMA CANNOT BE ENTIRELY EXCLUDED BY THIS EXAMINATION UP TO 30% OF MICROADENOMAS MAY ONLY BE DEMONSTRATED WITH DYNAMIC POSTCONTRAST IMAGING. 2. UNREMARKABLE MRI APPEARANCE OF THE BRAIN. Legally authenticated by PAULINA SKINNER 2024-04-17 15:52:46 Electronically signed by:Juan C Antonio 04/19/2024 01:01 PM EDT Dictated By: Juan C Antonio Transcribed By: Transcribed On: 04/17/2024 3:52 PM Electronically signed by: Juan C Antonio 04/17/2024 Thank you for referring PHILL ORONA to [facility]. Legally authenticated by PAULINA SKINNER 2024-04-17 15:52:46 us Edwige Courtney APRN, DNP IMG MRI PROCEDURES Fi nal Result documented in this encounter Visit Diagnoses Not on filedocumented in this encounter Additional Health Concerns Assessment Noted Time PHQ-9 Depression Total Score: 8 03/30/20 24 9:58 AM EDT A Body Mass Index follow-up plan has been documented for the patient 03/30/2024 10:27 AM EDT documented as of this encounter Care Teams Store Operations Manager Relationship Specialty Start Date End Date Iris Correa APRN [address] [place] [address] PCP - General 12/19/20 documented as of this encounter
--- OUTSIDE RECORDS SUMMARY | 2025-04-19 04:16 | XMS_ITS | Encounter Summary ---
Author Organization [facility] Address [address] [place] [address] Care Team Providers Care Vascular Radiologist Name Role Phone Iris Correa APRN Primary Care Provider [phone] Reason for Visit * Reason Onset Date Comments HCN Clinical Concern/Question 03/28/2025 Encounter Details Date Type Department Care Team (Late st Contact Info) Description 03/28/2025 Telephone [facility] Medicine [address] [place] [address] Iris Correa APRN [address] [place] [address] HCN Clinical Concern/Question Social History Tobacco Use Types Packs/Day Years [...] Answer Date Recorded Patient Health Questionnaire-2 Score 2 12/28/2024 Hunger Vital Sign Answer Date Recorded Within [...] place to sleep or slept in a prison (including now)? No 03/01/2024 PHQ-9 Answer Date [...] any time in the past 12 m [facility], were you homeless or living in a prison (including now)? No 12/28/2024 AUDIT-C Answer Date [...] In the past 12 months has th [employer], gas, oil, or water [employer] threatened to shut off services in your home? No 12/28/2024 PHQ-2A Answer Date Recorded Patient Health Questionnaire-2 Score 0 11/12/2022 Comments No Sex and Gender Information Value Date Recorded Sex Assigned at Not on file Legal Sex Female 8:50 PM EDT Gender Identity Not on file Sexual Orientation Not on file documented as of this encounter Miscellaneous Notes * Telephone Encounter - Cherie Campos - 04/01/2025 10:50 AM EDT Patient has recovered and able to keep food down * Telephone Encounter - Chau Urrutia - 03/28/2025 4:40 PM EDT Clinical Concern/Question Reason for Call: Requesting a nurse call back today if possible about what she can eat that is easyto keep down, pt having a hard time keeping food down, please contact pt for more information. Best contact number: [phone] (home) Optimal time of day to reach caller: ANYTIME Additional comments/information from caller: None Note: Please do not reply to this message. Follow-up communication and further actions as a result of this message need to be communicated with the patient directly, if the patient is not active onMyChart. If the patient is active on MyChart, they will receive notification of the communication/outcome via [employer]. documented in this encounter Plan of Treatment Upcoming Encounters Date Type Department Care Team ([facility] Contact Info) Description 05/02/2025 2:15 PM EDT Office Visit Obstetrics & Gynecology [address] [place] [address] Alma Townsend, METER/RELAY TECHNICIAN [address] [place] [address] documented as of this encounter [...] documented as of this encounter Care Teams Vascular Radiologist Relationship Specialty Start Date End Date Iris Correa, METER/RELAY TECHNICIAN [address] [place] [address] PCP - General 12/19/20 documented as of this encounter
--- OUTSIDE RECORDS SUMMARY | 2025-04-19 04:16 | XMS_ITS | Clinical Summary ---
Author Organization Healthcare Address [address] [place] [address] Care Team Providers Care Speeder Operator Name Role Phone Iris Correa APRN Primary Care Provider [phone] Allergies No known active allergies Medications busPIRone (Buspar) 10 MG tablet Take 0.5 tablets (5 mg) by mouth 1 (one) time each day. 4 Active levothyroxine (Synthroid) 25 MCG tabletIndication s:Hypothyroidism , unspecified type Take 1 tablet (25 mcg) by mouth 1 (one) time each day before breakfast. 30 tablet 1 4 Active Additional Information Patient not taking.Reported on 02/01/2025 sulfamethoxazole -trimethoprim (Bactrim DS) 800-160 MG tabletIndication s:Urinary frequency Take 1 tablet by mouth 2 times a day. 7 tablet 5 Active Active Problems Problem Noted Date Diagnosed Date Obesity (BMI 35.0-39.9 without comorbidity) 12/2023 Renal cyst 06/27/2020 Irregular menstrual cycle 06/12/2015 Anxiety disorder 08/30/2013 Depression 08/30/2013 Encounters Date Type Department Care Team Description 04/18/2025 2:15 PM EDT Office Visit Obstetrics & Gynecology [facility] [place] [address] Alma Townsend APRN Urinary frequency (Primary Dx) 04/18/2025 Travel 04/16/2025 Telephone [facility] Medicine [address] [facility] [place] [address] Iris Correa APRN 03/28/2025 Telephone [facility] [address] [place], [place] [address] Iris Correa APRN HCN Clinical Concern/Question 02/04/2025 Results Follow-Up [facility] [address] [place] [address] Hoa Lobato MD 02/04/2025 Results Follow-Up [facility] [address] [place] [address] Chau Antonio MD 02/01/2025 3:40 PM EDT Office Visit [facility] [address] [place] [address] Chau Antonio MD Dysuria (Primary Dx); Rib pain; Acute cystitis with hematuria; Hypothyroidism, unspecified type 02/01/2025 Travel from Last 3 Months Immunizations Immunization Administration Dates Next Due DTaP 01/27/2005, 2,2000,06/13,2000 HPV 9-Valent 07/01/2014,11/21/2013,03/03/2011 HPV, Quadrivalent 07/01/2014,11/21/2013,03/03/20 11 Hep A, Unspecified 11/21/2013,03/03/2011 Hep A, ped/adol, 2 dose 11/21/2013,03/03/2011 Hep B, Adolescent or Pediatric 2000,1999,2000 Hep B, Unspecified 2000,2000, 000 HiB, unspecified 01/30/2018, 1,2000,04/14 Hib (PRP-T) 01/30/2018, 1,2000,04/14 IPV 01/27/2005, 1,2000,04/14 Influenza Nasal, Unspecified 05/06/2014,08/17/19 13 Influenza, injectable, quadr ivalent, preservative free 05/20/2016 Influenza, live, intranasal, quadrivalent 05/06/2014,04/04/2013,08/17/2012 MMR 01/27/2005,05/16/2001 Meningococcal MCV4P 05/20/2016,03/03/2011 Pneumococcal Conjugate PCV 13 05/16/2001 ,2000,2000,04/14 Tdap 03/03/2011 Varicella 03/03/2011,02/13/2001 Family History Medical History Relation Name Comments Hypertension Father Stroke Father No Known Problems Maternal Grandfather No Known Problems Maternal Grandmother Endometriosis Mother No Known Problems Paternal Grandfather No Known Problems Paternal Grandmother Relation Name Status Comments Father Alive Maternal Grandfather Alive Maternal Grandmother Alive Mother Alive Paternal Grandfather Alive Paternal Grandmother Alive Social History Tobacco Use Types Packs/Day Years Used Date Smoking Tobacco: Never Passive Smoke Exposure: Never Smokeless Tobacco: Never Tobacco Cessation:Counseling Given: Not Answered Alcohol Use Standard Drinks/Week Comments Not Currently [...] place to sleep or slept in a long-term (including now)? No 03/01/2024 PHQ-9 Answer Date [...] any time in the past [address] [facility], were you homeless or living in a long-term (including now)? No 12/28/2024 AUDIT-C Answer Date [...] the past 12 months has th e electric, gas, oil, or water company threatened to shut off services in your home? No 12/28/2024 PHQ-2A Answer Date Recorded Patient Health Questionnaire-2 Score 0 11/12/2022 Comments No Sex and Gender Information Value Date Recorded Sex Assigned at Not on file Legal Sex Female 8:50 PM EDT Gender Identity Not on file Sexual Orientation Not on file Last Filed Vital Signs Vital Sign Reading Time Taken Comments Blood Pressure 127/81 04/18/2025 2:27 PM EDT Pulse 92 04/18/2025 2:27 PM EDT Temperature 36.7 C (98 F) 04/18/2025 2:27 PM EDT Respiratory Rate 18 02/01/2025 3:41 PM EDT Oxygen Saturation 99% 04/18/2025 2:27 PM EDT Inhaled Oxygen Concentration - - Weight 118 kg (259 lb 7.7 oz) 04/18/2025 2:27 PM EDT Height 182.9 cm (6') 02/01/2025 3:41 PM EDT Body Mass Index 35.19 02/01/2025 3:41 PM EDT Plan of Treatment Upcoming Encounters Date Type Department Care Team (Late st Contact Info) Description 05/02/2025 2:15 PM EDT Office Visit Obstetrics & Gynecology [address] [place] [address] Alma Townsend, HR ASSISTANT [address] [place] [address] Health Maintenance Due Date Last Done Comments [facility]-HIV Screening 2000 [facility]-Hepatitis C Screening 2000 [facility]-DTaP,Tdap,and Td Vaccines (7 - Td or Tdap) 03/03/2021 03/03/2011, 01/27/2005, 08/22/2001, Additional history exists [facility]-/Child/Adol SDOH Screenings 03/03/2025 09/03/2024 [facility]- SDOH Screenings 06/30/2025 [facility]-Adult SDOH Screenings 06/30/2025 12/28/2024 [facility]-Depression Screening 04/18/2026 04/18/2025, 12/07 [facility]-Zoster Vaccines (1 of 2) 02/10/2050 03/03/2011, 02/13/2001 [facility]-Hepatitis B Vaccines Completed 001, 2000, 2000, Additional history exists [facility]-Pneumococcal Vaccine: Pediatrics (0 to 5 Years) and At-Risk Patients (6 to 49 Years) Completed 05/16/2001, 2000, 2000, Additional history exists [facility]-IPV Vaccines Completed 01/27/2005, 04/2001, 2000, Additional history exists [facility]-Varicella Vaccines Completed 03/03/2011, 2000 [facility]-Hepatitis A Vaccines Completed 014, 11/21/2013, 03/03/2011, Additional history exists HPV Vaccines Completed 07/01/2014, 06/09, 11/21/2013, Additional history exists [facility]-Influenza Vaccine Discontinued 05/20/2016 , 05/06/2014, 04/04/2013, Additional history exists [facility]-HIB Vaccines Completed 01/30/2018, , 02/13/2001, Additional history exists [facility]-Obesity Intervention Completed 025, 01/04/2025, 09/03/2024, Additional history exists [id number] Vaccine Discontinued [facility]-Pap Smear Discontinued [facility]-Rotavirus Vaccines Aged Out No lo nger eligible based on patient's age to complete this topic Procedures Procedure Name Priority Date/Time Associated Diagnosis Comments POCT URINALYSIS DIPSTICK Routine 04/18/2025 2:37 PM EDT Urinary frequency TSH Routine 02/01/2025 4:12 PM EDT Hypothyroidism, unspecified type COMPREHENSIVE METABOLIC PANEL, PLASMA Routine 02/01/2025 4:12 PM EDT Dysuria Rib pain CBC WITH AUTO DIFFERENTIAL Routine 02/01/2025 4:12 PM EDT Dysuria Rib pain URINE CULTURE Routine 02/01/2025 3:59 PM EDT Dysuria POCT URINALYSIS DIPSTICK Routine 02/01/2025 3:54 PM EDT Dysuria from Last 3 Months Results * (ABNORMAL) POCT Urinalysis Dipstick (04/18/2025 2:37 PM EDT) Only the most recent of2 resultswithin the time period is included. POCT Urine Color Red POCT Urine Clarity Cloudy POCT Glucose Urine 100(A) Negative mg/dL POCT Bilirubin, Urine Large(A) Negative POCT Ketones, Urine 15(A) Negative mg/dL POCT Specific [place], Urine 1.010 POCT Blood, Urine Large(A) Negative POCT pH, Urine 8.5(A) 5.0 to 8.0 POCT Protein, Urine >=300(A) Negative mg/dL POCT Urobilinogen, Urine 4.0(A) 0.2, 1 E.U./dL POCT Nitrite, Urine Positive(A ) Negative POCT Leukocyte Esterase, Urine Large(A) Negative Test Strip Lot Number [id number] Test Strip Lot Expiration 06/2025 Urine Urine specimen obtained by clean catch procedure / Unknown 04/18/2025 2:37 PM EDT us Alma Townsend APRN POINT OF CARE TEST ENTER/ED IT ORDERABLES Final Result * CBC and Differential (02/01/2025 4:12 PM EDT) WBC Count 7.20 3.70 - 10.30 10*3/uL LAB HEMATOLOGY METHOD 02/01/2025 6:27 PM EDT [facility] RBC Count 4.94 3.90 - 5.20 10*6/uL LAB HEMATOLOGY METHOD 02/01/2025 6:27 PM EDT [facility] HGB 13.6 11.2 - 15.7 g/dL LAB HEMATOLOGY METHOD 02/01/2025 6:27 PM EDT [facility] HCT 41.5 34.0 - 45.0 % LAB HEMATOLOGY METHOD 02/01/2025 6:27 PM EDT [facility] Platelet Count 295 155 - 369 10*3/uL LAB HEMATOLOGY METHOD 02/01/2025 6:27 PM EDT [facility] MCV 84 79 - 98 fL LAB HEMATOLOGY METHOD 02/01/2025 6:27 PM EDT [facility] MCH 27.5 26.0 - 32.0 pg LAB HEMATOLOGY METHOD 02/01/2025 6:27 PM EDT [facility] MCHC 32.8 30.7 - 35.5 g/dL LAB HEMATOLOGY METHOD 02/01/2025 6:27 PM EDT [facility] RDW 13.8 11.5 - 14.5 % LAB HEMATOLOGY METHOD 02/01/2025 6:27 PM EDT [facility] MPV 9.9 8.8 - 12.5 fL LAB HEMATOLOGY METHOD 02/01/2025 6:27 PM EDT [facility] nRBC 0.0 <=0.0 per 100 WBCs LAB HEMATOLOGY METHOD 02/01/2025 6:27 PM EDT [facility] Differential Type Automated LAB HEMATOLOGY METHOD 02/01/2025 6:27 PM EDT [facility] Neutrophils % 55 % LAB HEMATOLOGY METHOD 02/01/2025 6:27 PM EDT [facility] Lymphocytes % 34 % LAB HEMATOLOGY METHOD 02/01/2025 6:27 PM EDT [facility] Monocytes % 6 % LAB HEMATOLOGY METHOD 02/01/2025 6:27 PM EDT [facility] Eosinophils % 4 % LAB HEMATOLOGY METHOD 02/01/2025 6:27 PM EDT [facility] Basophils % 1 % LAB HEMATOLOGY METHOD 02/01/2025 6:27 PM EDT [facility] Immature Granulocytes % 0 % LAB HEMATOLOGY METHOD 02/01/2025 6:27 PM EDT [facility] Neutrophils Absolute 4.00 1.60 - 6.10 10*3/uL LAB HEMATOLOGY METHOD 02/01/2025 6:27 PM EDT [facility] Lymphocytes Absolute 2.41 1.20 - 3.90 10*3/uL LAB HEMATOLOGY METHOD 02/01/2025 6:27 PM EDT [facility] Monocytes Absolute 0.41 0.30 - 0.90 10*3/uL LAB HEMATOLOGY METHOD 02/01/2025 6:27 PM EDT [facility] Eosinophils Absolute 0.32 0.00 - 0.50 10*3/uL LAB HEMATOLOGY METHOD 02/01/2025 6:27 PM EDT [facility] Basophils Absolute 0.04 0.00 - 0.10 10*3/uL LAB HEMATOLOGY METHOD 02/01/2025 6:27 PM EDT [facility] Immature Granulocytes Absolute 0.02 0.00 - 0.06 10*3/uL LAB HEMATOLOGY METHOD 02/01/2025 6:27 PM EDT [facility] Blood Venous blood specimen / Unknown Venipuncture / Unknown 02/01/2025 4:12 PM EDT 02/01/2025 4:12 PM EDT Narrative [facility] - 02/01/2025 6:27 PM EDT Therapeutic decision making should be based on absolute values, rather than percentages. us Chau Antonio MD LAB BLOOD ORDERABLES Final Res ult Performing Organization Address City/[facility]/ZIP Co de Phone Number [facility] [address] [place] [address] * TSH (02/01/2025 4:12 PM EDT) Thyroid Stimulating Hormone, Plasma 4.19 0.40 - 4.20 uIU/mL 02/01/2025 6:27 PM EDT [facility] Blood Venous blood specimen / Unknown Venipuncture / Unknown 02/01/2025 4:12 PM EDT 02/01/2025 4:12 PM EDT Narrative [facility] - 02/01/2025 6:27 PM EDT Trimester Specific Ranges TSH ( IU/mL) 1st Trimester 0.1 - 3.0 2nd Trimester 0.19 - 4.06 3rd Trimester 0.3 - 3.7 us Hoa Lobato MD LAB BLOOD ORDERABLES Final Re sult [facility] [address] [place] [address] * (ABNORMAL) Comprehensive Metabolic Panel, Plasma (02/01/2025 4:12 PM EDT) Glucose, Plasma 86 74 - 99 mg/dL 02/01/2025 6:27 PM EDT [facility] BUN, Plasma 10 7 - 21 mg/dL 02/01/2025 6:27 PM EDT [facility] Creatinine, Plasma 0.88 0.60 - 1.10 mg/dL 02/01/2025 6:27 PM EDT [facility] BUN/Creatinine Ratio 11 02/01/2025 6:27 PM EDT [facility] Sodium, Plasma 141 136 - 145 mmol/L 02/01/2025 6:27 PM EDT [facility] Potassium, Plasma 4.3 3.6 - 4.9 mmol/L 02/01/2025 6:27 PM EDT [facility] Chloride, Plasma 104 97 - 107 mmol/L 02/01/2025 6:27 PM EDT [facility] CO2, Plasma 24 22 - 29 mmol/L 02/01/2025 6:27 PM EDT [facility] Anion Gap 13 6 - 16 mmol/L 02/01/2025 6:27 PM EDT [facility] Total Calcium, Plasma 9.2 8.9 - 10.2 mg/dL 02/01/2025 6:27 PM EDT [facility] Total Protein 7.1 6.3 - 7.9 g/dL 02/01/2025 6:27 PM EDT [facility] Albumin, Plasma 4.3 3.5 - 5.2 g/dL 02/01/2025 6:27 PM EDT [facility] AST, Plasma 31 10 - 35 U/L 02/01/2025 6:27 PM EDT [facility] ALT, Plasma 36(H) 10 - 35 U/L 02/01/2025 6:27 PM EDT [facility] Alkaline Phosphatase, Plasma 81 35 - 104 U/L 02/01/2025 6:27 PM EDT [facility] Total Bilirubin, Plasma 0.4 0.2 - 1.1 mg/dL 02/01/2025 6:27 PM EDT [facility] eGFRcr 94.2 mL/min/1.7 3m*2 02/01/2025 6:27 PM EDT [facility] Comment:Reported eGFRcr in m L/min/1.73m2 is based the CKD-EPI 2020 equation that does not use a race coefficient. Blood Venous blood specimen / Unknown Venipuncture / Unknown 02/01/2025 4:12 PM EDT 02/01/2025 4:12 PM EDT Chau Antonio MD LAB BLOOD ORDERABLES Final Res ult Performing Organization Address City/[facility]/ZIP Co de Phone Number [facility] [address] [place] [address] * Urine Culture (02/01/2025 3:59 PM EDT) Culture <10,000 CFU/mL Mixed urogenital, fecal, or skin charleen present. 02/02/2025 3:03 PM EDT [facility] Urine Urine specimen obtained by clean catch procedure / Unknown Non-blood Collection / Unknown 02/01/2025 3:59 PM EDT 02/01/2025 3:59 PM EDT Chau Antonio MD LAB MICROBIOLOGY - GENERAL ORD ERABLES Final Result Performing Organization Address [facility] Co de Phone Number [facility] [address] [place] [address] from Last 3 Months Insurance [facility] Care Teams Speeder Operator Relationship Specialty Start Date End Date Iris Correa, HR ASSISTANT [address] [place] [address] PCP - General 12/19/20
--- OUTSIDE RECORDS SUMMARY | 2025-04-19 04:16 | XMS_ITS | Encounter Summary ---
Author Organization Healthcare Address [address] [place] [address] Care Team Providers Care Car Ferrier Name Role Phone Iris Correa APRN Primary Care Provider [phone] Encounter Details Date Type Department Care Team (Late st Contact Info) Description 07/16/2022 Lab Requisition [facility] [address] [place] [address] Mahnaz Fernandez, PA [address] [place] [address] Routine general medical examination at a health care facility Social History Tobacco Use Types Packs/Day Years Used Date Smoking Tobacco: Never Smokeless Tobacco: Never PHQ-2 Answer Date Recorded Patient Health Questionnaire-2 Score 2 06/25/2022 Comments Unknown Sex and Gender Information Value Date Recorded Sex Assigned at Not on file Legal Sex Female 8:50 PM EDT Gender Identity Not on file Sexual Orientation Not on file COVID-19 Exposure Response Date Recorded In the last 10 days, have yo u been in contact with someone who was confirmed or suspected to have Coronavirus/COVID-19? No / Unsure 06/25/2022 10:31 AM EST documented as of this encounter Plan of Treatment Upcoming Encounters Date Type Department Care Team (Late Contact Info) Description 05/02/2025 2:15 PM EDT Office Visit Obstetrics & Gynecology [address] [place] [address] Alma Townsend APRN [address] [facility] [place] [address] documented as of this encounter Procedures Procedure Name Priority Date/Time Associated Diagnosis Comments SARS COV-2/COVID-19 BY PCR - RAPID Routine 07/15/2022 11:20 PM EST Routine general medical examination at a health care facility [ICD-10-CM] documented in this encounter Results * SARS CoV-2/COVID-19 by PCR - Rapid (07/15/2022 11:20 PM EST) SARS CoV-2/COVID-1 9 RNA PCR Result Not Detected Not Detected 07/16/2022 1:22 AM EST [facility] Swab Nasopharyngeal structure / Unknown 07/15/2022 11:20 PM EST 07/16/2022 12:34 AM EST Narrative [facility] - 07/16/2022 1:22 AM EST This assay is for in vitro diagnostic use under FDA emergency use authorization only. Negative results do not preclude infection with the SARS CoV-2 virus and should not be the sole basis of a patient treatment/management or public health decision. Follow up testing should be performed according to the current CDC recommendations. This test was performed on the Xpert Xpress SARS CoV-2 test, a PCR-based method. Negative results should be considered presumptive and do not preclude current or future infection obtained through community transmission or other exposures. Negative results must be considered in the context of an individual's recent exposures, history, presence of clinical signs and symptoms consistent with COVID-19. us Mahnaz [facility] MICROBIOLOGY - GENERAL O RDERABLES Final Result [facility] [address] [place] [address] documented in this encounter Visit Diagnoses Diagnosis Routine general medical examination at a health care facility documented in this encounter Care Teams Car Ferrier Relationship Specialty Start Date End Date Iris Correa APRN [address] [place] [address] PCP - General 12/19/20 documented as of this encounter
--- OUTSIDE RECORDS SUMMARY | 2025-04-19 04:16 | XMS_ITS | Clinical Summary ---
Author Organization [facility] Address [address] [place] [id number] Phone [email or web address] Care Team Providers Care Wood Heel Flap Inserter Name Role Phone Unavailable Primary Care Provider Unavailabl e Allergies No known active allergies Medications sertraline (ZOLOFT) 100 MG tablet Take 100 mg by mouth once daily as needed. 07/21/2022 Active prazosin (MINIPRESS) 1 MG capsule 10/13/2023 Active ARIPiprazole (ABILIFY) 5 MG tablet Take 5 mg by mouth once daily as needed. 07/13/2022 Active naltrexone (DEPADE) 50 MG tablet Take 50 mg by mouth once daily as needed. 07/21/2022 Active Active Problems Problem Noted Date Diagnosed Date Back pain at L4-L5 level 11/07/2023 Social History Tobacco Use Types Packs/Day Years Used Date Smoking Tobacco: Never Smokeless Tobacco: Never Tobacco Cessation:Counseling Given: Not Answered Depression Answer Date Recorded PHQ Total Score 0 11/07/2023 Stress Answer Date Recorded Stress in your Life Not on file 06/14/2024 Dealing with Stress 3 06/14/2024 Comments Unknown Sex and Gender Information Value Date Recorded Sex Assigned at Not on file Legal Sex Female 5:36 PM CDT Gender Identity Not on file Sexual Orientation Not on file Last Filed Vital Signs Vital Sign Reading Time Taken Comments Blood Pressure 116/78 11/07/2023 6:42 PM EDT Pulse 83 11/07/2023 6:42 PM EDT Temperature 36.7 C (98.1 F) 11/07/2023 6:42 PM EDT Respiratory Rate 18 11/07/2023 6:42 PM EDT Oxygen Saturation 97% 11/07/2023 6:42 PM EDT Inhaled Oxygen Concentration - - Weight - - Height - - Body Mass Index - - Plan of Treatment Health Maintenance Due Date Last Done Comments Cervical Cancer Screening Combo 2000 Dental Cleaning/Exam 2000 HIV Screening 2000 HPV / Cotest 2000 Hepatitis C Screening 2000 Pap Testing 2000 Annual Preventive Exam 02/10/2018 Hep B Infection Screening - Triple Screen 02/10/2018 Tetanus Diphtheria and Pertussis Immunization (7 - Td or Tdap) 03/03/2021 03/03/2011, 01/27/2005, 08/22/2001, Additional history exists Covid-19 Immunization ( - season) 2025 Influenza Immunization (#1) 04/08/202505/08, 05/06/2014, 04/04/2013, Additional history exists Hepatitis B Immunization Completed 001, 2000, 2000 Pneumococcal: Ped (0 to 5 Yrs) and At-Risk Member (6 to 64 Yrs) Completed 05/16/2001, 2000, 2000, Additional history exists Polio Immunization Completed 01/27/2005, 0 02/13/2001, 2000, Additional history exists Varicella Immunization Completed 03/03/2011, 2000 Hepatitis A Immunization Completed 11/21/2013, 02/06 HPV Immunization Completed 07/01/2014, , 03/03/2011 Meningococcal Immunization Completed 05/20/2016, HIB Immunization Completed 01/30/2018, 04/2001, 2000, Additional history exists Men B Immunization Aged Out No longer eligible based on patient's age to complete this topic
--- OUTSIDE RECORDS SUMMARY | 2025-04-19 04:16 | XMS_ITS | Encounter Summary ---
Author Organization Healthcare Address [address] [place] [address] Care Team Providers Care Radiographer Cardiac Catheterization Name Role Phone Iris Correa APRN Primary Care Provider [phone] Encounter Details Date Type Department Care Team (Late st Contact Info) Description 07/20/2022 Lab Requisition [facility] [address] [place] [address] Mahnaz Fernandez, CARROLL [address] [place] [address] Routine general medical examination at [...] suspected to have Coronavirus/COVID-19? No / Unsure 07/21/2022 2:48 PM EST documented as of this encounter Plan of Treatment Upcoming Encounters Date Type Department Care Team (Late st Contact Info) Description 05/02/2025 2:15 PM EDT Office Visit Obstetrics & Gynecology [address] [place] [address] Alma Townsend APRN [address] [place] [address] documented as of this encounter Visit Diagnoses Diagnosis Routine general medical examination at a health care facility documented in this encounter Care Teams Radiographer Cardiac Catheterization Relationship Specialty Start Date End Date Iris Correa, PALEOLOGIST [address] [place] [address] PCP - General 12/19/20 documented as of this encounter
--- OUTSIDE RECORDS SUMMARY | 2025-04-19 04:16 | XMS_ITS | Encounter Summary ---
Author Organization [facility] Address [address] [place] [address] Care Team Providers Care Sales Order Clerk Name Role Phone Iris Correa APRN Primary Care Provider [phone] Encounter Details Date Type Department Care Team (Late st Contact Info) Description 02/04/2025 Results Follow-Up [facility] [address] [place] [address] Hoa Lobato MD [address] [place] [address] Social History Tobacco Use Types [...] [facility] the [facility] or living in a [facility] (including now)? No 12/28/2024 AUDIT-C Answer Date [...] EDT Office Visit Obstetrics & Gynecology [address] [place] [address] Alma Townsend APRN [address] [place] [address] documented as of this encounter [...] documented as of this encounter Care Teams Sales Order Clerk Relationship Specialty Start Date End Date Iris Correa APRN [address] [place] [address] PCP - General 12/19/20 documented as of this encounter
--- OUTSIDE RECORDS SUMMARY | 2025-04-19 04:16 | XMS_ITS | Encounter Summary ---
Author Organization [facility] Address [address] [place] [address] Care Team Providers Care Building Engineer Name Role Phone Iris Correa APRN Primary Care Provider [phone] Encounter Details Date Type Department Care Team (Latest Contact Info) Description 04/18/2025 Travel Social History Tobacco Use Types Packs/Day Years [...] place to sleep or slept in a jail (including now)? No 03/01/2024 PHQ-9 Answer Date [...] any time in the past [address] [facility], were you homeless or living in a jail (including now)? No 12/28/2024 AUDIT-C Answer Date [...] Barragan RN documented as of this encounter Plan of Treatment Upcoming Encounters Date Type Department Care Team (Late st Contact Info) Description 05/02/2025 2:15 PM EDT Office Visit Obstetrics & Gynecology [address] [place] [address] Alma Townsend APRN [address] [place] [address] documented as of this encounter Visit Diagnoses Not on filedocumented in this encounter Additional Health Concerns Assessment Noted Time PHQ-9 Depression Total Score: 8 12/29/19 2:57 PM EDT A fall risk assessment has been complete d for the patient 04/18/2025 2:28 PM EDT A Body Mass Index follow-up plan has been documented for the patient 04/18/2025 2:58 PM EDT documented as of this encounter Care Teams Building Engineer Relationship Specialty Start Date End Date Iris Cor[place] [id number] PCP - General 12/19/20 documented as of this encounter
--- OUTSIDE RECORDS SUMMARY | 2025-04-19 04:16 | XMS_ITS | Encounter Summary ---
Author Organization [facility] Address [address] [place] [address] Care Team Providers Care Anglesmith Helper Name Role Phone Iris Correa APRN Primary Care Provider [phone] Encounter Details Date Type Department Care Team (Late Contact Info) Description 08/13/2022 Outside Procedure External Location [address] [place] [address] Provider, Joni Ider Social History Tobacco Use Types Packs/Day Years [...] EDT Office Visit Obstetrics & Gynecology [address] [place] [address] Alma Townsend APRN [address] [place] [address] documented as of this encounter Procedures Procedure Name Priority Date/Time Associated Diagnosis Comments CT LUMBAR SPINE WO IV CONTRAST 08/13/2022 3:54 PM EST documented in this encounter Results * CT Lumbar Spine wo IV Contrast (08/13/2022 3:54 PM EST) Anatomical Region Laterality Modality Spine, L-spine Computed Tomogra phy 08/13/2022 3:54 PM EST Narrative 08/13/2022 6:47 [place] [address] Name: PHILL ORONA Exam Date: 08/13/2022 : 2000 Age 22 Gender: F Physician: NOE VIVAR Facility: [facility] Facility HSV: Outpatient Exam: CT LUMBAR SPINE W/O FINAL REPORT TECHNIQUE: Axial imaging of the lumbar spine was obtained without contrast. Sagittal and coronal reformatted images were also obtained and reviewed. This study was performed with techniques to keep radiation doses as low as reasonably achievable (ALARA). Individualized dose reduction techniques using automated exposure control or adjustment of mA and/or kV according to the patient''s size were employed. CLINICAL HISTORY: pulled back when twisting wrong today; pain radiating down rt leg FINDINGS: There is no fracture. The vertebral alignment is normal. The disc spaces are preserved.There is no evidence of significant central canal stenosis. T12-L1: No evidence of central canal stenosis or neural foraminal narrowing. L1-L2: No evidence of central canal stenosis or neural foraminal narrowing. L2-L3: No evidence of central canal stenosis or neural foraminal narrowing. L3-L4: No evidence of central canal stenosis or neural foraminal narrowing. L4-L5: Probable left foraminal disc protrusion. L5-S1: No evidence of central canal stenosis or neural foraminal narrowing. IMPRESSION: Left foraminal disc protrusion. MRI can further evaluate. Reviewed, Interpreted and Dictated by Osman Brasher III, MD Transcribed by Ana Rios Authenticated and EASTERN Dictated By: Osman Brasher III Transcribed By: Transcribed On: 08/13/2022 6:35 PM Electronically signed by: Osman Brasher III 08/13/2022 Thank you for referring PHILL ORONA to [facility]. Legally authenticated by MEGHA Corona III 2022-08-13 18:35:39 Procedure Note Provider, Generic Ider - 08/13/2022 [place] [address] Name: PHILL ORONA Exam Date: 08/13/2022 : 2000 Age 22 Gender: F Physician: NOE VIVAR Facility: [facility] Facility HSV: Outpatient Exam: CT LUMBAR SPINE W/O FINAL REPORT TECHNIQUE: Axial imaging of the lumbar spine was obtained without contrast. Sagittal and coronal reformatted images were also obtained and reviewed. This study was performed with techniques to keep radiation doses as low as reasonably achievable (ALARA). Individualized dose reduction techniques using automated exposure control or adjustment of mA and/or kV according to the patient''s size were employed. CLINICAL HISTORY: pulled back when twisting wrong today; pain radiating down rt leg FINDINGS: There is no fracture. The vertebral alignment is normal. The disc spaces are preserved.There is no evidence of significant central canal stenosis. T12-L1: No evidence of central canal stenosis or neural foraminal narrowing. L1-L2: No evidence of central canal stenosis or neural foraminal narrowing. L2-L3: No evidence of central canal stenosis or neural foraminal narrowing. L3-L4: No evidence of central canal stenosis or neural foraminal narrowing. L4-L5: Probable left foraminal disc protrusion. L5-S1: No evidence of central canal stenosis or neural foraminal narrowing. IMPRESSION: Left foraminal disc protrusion. MRI can further evaluate. Reviewed, Interpreted and Dictated by Osman Brasher III, MD Transcribed by Ana Rios Authenticated and EASTERN Dictated By: Osman Brasher III Transcribed By: Transcribed On: 08/13/2022 6:35 PM Electronically signed by: Osman Brasher III 08/13/2022 Thank you for referring PHILL ORONA to [facility]. Legally authenticated by MEGHA Corona III 2022-08-13 18:35:39 Generic Ider Provider IMG CT PROCEDURES Fi nal Result documented in this encounter Visit Diagnoses Not on filedocumented in this encounter Care Teams Anglesmith Helper Relationship Specialty Start Date End Date Iris Correa APRN [address] [place] [phone] PCP - General 12/19/20 documented as of this encounter
--- OUTSIDE RECORDS SUMMARY | 2025-04-19 04:16 | XMS_ITS | Encounter Summary ---
Author Organization Healthcare Address [address] [place] [address] Care Team Providers Care Suppository Molding Machine Operator Name Role Phone Iris Correa APRN Primary Care Provider [phone] Encounter Details Date Type Department Care Team (Late st Contact Info) Description 07/16/2022 Lab Requisition [facility] [address] [place] [address] Mahnaz Fernandez, CARROLL [address] [place] [address] Routine general medical examination at [...] EDT Office Visit Obstetrics & Gynecology [address] [place] [address] Alma Townsedn APRN [address] [place] [phone] documented as of this encounter Visit Diagnoses Diagnosis Routine general medical examination at a health care facility documented in this encounter Care Teams Suppository Molding Machine Operator Relationship Specialty Start Date End Date Iris Correa, SALES SPECIAL AGENT [address] [place] [address] PCP - General 12/19/20 documented as of this encounter
--- OUTSIDE RECORDS SUMMARY | 2025-04-19 04:16 | XMS_ITS | Encounter Summary ---
Author Organization [facility] Address [address] [place] [address] Care Team Providers Care Webmethods Architect Name Role Phone Iris Correa APRN Primary Care Provider [phone] Encounter Details Date Type Department Care Team (Late st Contact Info) Description 07/19/2022 Lab Requisition [facility] [address] [place] [address] Mahnaz Fernandez, CARROLL [address] [place] [address] Routine general medical examination at [...] EDT Office Visit Obstetrics & Gynecology [address] [place] [address] Alma Townsend APRN [address] [place] [phone] documented as of this encounter Visit Diagnoses Diagnosis Routine general medical examination at a health care facility documented in this encounter Care Teams Webmethods Architect Relationship Specialty Start Date End Date Iris Correa, LIFT BUILDER WHOLE [address] [place] [address] PCP - General 12/19/20 documented as of this encounter
--- OUTSIDE RECORDS SUMMARY | 2025-04-19 04:16 | XMS_ITS | Encounter Summary ---
Author Organization [facility] Address [address] [place] [address] Care Team Providers Care Project Coach Name Role Phone Iris Correa APRN Primary Care Provider [phone] Encounter Details Date Type Department Care Team (Late st Contact Info) Description 05/01/2024 Outside Procedure External Location [address] [place] [address] Edwige Courtney, LUPE, DNP [address] [place] [address] Social History Tobacco Use Types Packs/Day Years [...] the past 12 months has th e [employer], gas, oil, or water company threatened to [...] EDT Office Visit Obstetrics & Gynecology [address] [place] [address] Alma Townsend, WOOL SPOTTER [address] [place] [address] documented as of this encounter Procedures Procedure Name Priority Date/Time Associated Diagnosis Comments US PELVIS TRANSVAGINAL 05/01/2024 4:35 PM EDT documented in this encounter Results * US Pelvis Transvaginal (05/01/2024 4:35 PM EDT) Anatomical Region Laterality Modality Pelvis Ultrasound 05/01/2024 4:35 PM EDT Narrative 05/02/2024 7:19 AM EDT [facility] [address] [place] [address] Name: PHILL ORONA Exam Date: 05/01/2024 : 2000 Age 24 years Gender: F Physician: Edwige Courtney Facility: [facility] Facility HSV: Outpatient Exam: US TRANSVAGINAL Ultrasound of the pelvis: HISTORY: 24 yearsold Female with amenorrhea. TECHNIQUE: Multiple grayscale and color Doppler images of the pelvis were obtained transvaginally. COMPARISON: None available FINDINGS: The uterus measures 5.1 x 2.0 x 4.3 cm. The endometrium measures 2-3 mm in thickness. There is trace fluid seen in the cervical canal. No myometrial mass is seen. The right ovary measures 3.3 x 2.8 x 2.5 cm. There is a sonographically simple cyst. The right ovary measuring up to 2.3. This likely represents a physiologic cyst. The left ovary measures 3.5 x 2.1 x 2.5 cm. Normal arterial waveforms were obtained from both ovaries. No free fluid is seen in the cul-de-sac. IMPRESSION: No acute sonographic abnormality is seen within the pelvis. Electronically signed by:Natalie Griffith DO05/02/2024 07:15 AM EDT Dictated By: Natalie Griffith Transcribed By: Transcribed On: 05/01/2024 5:33 PM Electronically signed by: aNtalie Griffith 05/01/2024 Thank you for referring PHILL ORONA to [facility]. Legally authenticated by STEPHANIE SIMMONS 2024-05-01 17:33:00 Procedure Note Provider, Generic Haysi - 05/02/2024 [place] [address] Name: PHILL ORONA Exam Date: 05/01/2024 : 2000 Age 24 years Gender: F Physician: Edwige Courtney Facility: [facility] Facility HSV: Outpatient Exam: US TRANSVAGINAL Ultrasound of the pelvis: HISTORY: 24 yearsold Female with amenorrhea. TECHNIQUE: Multiple grayscale and color Doppler images of the pelviswere obtained transvaginally. COMPARISON: None available FINDINGS: The uterus measures 5.1 x 2.0 x 4.3 cm. The endometrium measures2-3 mm in thickness. There is trace fluid seen in the cervical canal. No myometrial mass is seen. The right ovary measures 3.3 x 2.8 x 2.5 cm. There is a sonographicallysimple cyst. The right ovary measuring up to 2.3. This likely represents a physiologic cyst. The left ovary measures 3.5 x 2.1 x 2.5 cm. Normal arterial waveforms were obtained from both ovaries. No free fluid is seen in the cul-de-sac. IMPRESSION: No acute sonographic abnormality is seen within the pelvis. Electronically signed by:Natalie Griffith 05/02/2024 07:15 AM EDT Dictated By: Natalie Griffith Transcribed By: Transcribed On: 05/01/2024 5:33 PM Electronically signed by: Natalie Griffith 05/01/2024 Thank you for referring PHILL ORONA to [facility]. Legally authenticated by STEPHANIE SIMMONS 2024-05-01 17:33:00 us Edwige Courtney APRN, DNP IMG US PROCEDURES Fin al Result documented in this encounter Visit Diagnoses Not on filedocumented in this encounter Additional Health Concerns Assessment Noted Time PHQ-9 Depression Total Score: 8 03/30/20 24 9:58 AM EDT A Body Mass Index follow-up plan has been documented for the patient 03/30/2024 10:27 AM EDT documented as of this encounter Care Teams Project Coach Relationship Specialty Start Date End Date Iris Correa APRN [address] [place] [address] PCP - General 12/19/20 documented as of this encounter
--- NOTE | 2025-04-19 04:22 | CT_ITS ---
PROCEDURE INFORMATION: Exam: CT Abdomen And Pelvis With Contrast Exam date and time: 04/19/2025 5:15 AM Age: 25 years old Clinical indication: Abdominal pain; Additional info: UTI bilateral flank pain worsening TECHNIQUE: Imaging protocol: Computed tomography of the abdomen and pelvis with contrast. Radiation optimization: All CT scans at this facility use at least one of these dose optimization techniques: automated exposure control; mA and/or kV adjustment per patient size (includes targeted exams where dose is matched to clinical indication); or iterative reconstruction. Contrast material: ISOVUE; Contrast volume: 75 ml; Contrast route: IV; COMPARISON: CT ABDOMEN PELVIS W CON 06/13/2024 12:59 PM FINDINGS: Liver: The liver is low in density. Gallbladder and biliary ducts: Cholecystectomy. Pancreas: Normal. No ductal dilation. Spleen: Normal. No splenomegaly. Adrenal glands: Normal. No mass. Kidneys and ureters: Normal. No hydronephrosis. Stomach and bowel: The left colon and rectum are devoid of stool consistent with likely recent diarrhea, no significant wall thickening or inflammation is noted in the bowel. No ileus or obstruction present. Appendix: The appendix is normal. Intraperitoneal space: Unremarkable. No free air. No significant fluid collection. Vasculature: Unremarkable. No abdominal aortic aneurysm. Lymph nodes: Unremarkable. No enlarged lymph nodes. Urinary bladder: Unremarkable as visualized. Reproductive: Unremarkable as visualized. Bones/joints: Unremarkable. No acute fracture. Soft tissues: Unremarkable. IMPRESSION: 1. Left colon and rectum are free of stool consistent with probable recent diarrhea however no evidence of colitis, ileus or obstruction is identified. Possible enteritis. 2. Diffuse hepatic steatosis. 3. Hysterectomy.
[2025-04-19 04:27] LABS: Microscopic, Urine URINE MICROSCOPIC (MICROSCOPIC)
[2025-04-19 04:28] LABS: Bilirubin,Urine Negative (Negative); Color,Urine YELLOW (Yellow); Glucose,Urine (UA) Negative (Negative); Ketones,Urine Negative (Negative); Leukocyte Esterase,Urine Negative (Negative); PH,Urine 7.0 (5.0-8.5); Protein,Urine TRACE (Negative); Specific Gravity, Urine 1.020 (1.005-1.030); Urobilinogen,Urine 0.2 EU/dl (0.2)
[2025-04-19 04:32] LABS: Hematocrit 40.8 % (37.0-47.0); Hemoglobin 13.8 g/dL (12.2-16.2); Immature Granulocytes % 0.3 %; Mean Corpuscular HGB Conc 33.8 g/dL (31.8-35.4); Mean Corpuscular Hemoglobin 28.2 pg (27.0-31.2); Mean Corpuscular Volume 83.4 fl (81-99); Nucleated Red Blood Cells % 0 %; Platelet Count 302 K/mm3 (142-424); Red Blood Count 4.89 M/mm3 (4.20-5.40); Red Cell Distribution Width-SD 40.8 fL; White Blood Count 11.3 K/mm3 (4.8-10.8)
[2025-04-19] MEDS: LACTATED RINGERS 1000ML 1,000 ML 999 ML IV (04:34)
[2025-04-19] MEDS: KETOROLAC 30MG/ML VIAL 30 MG IV (04:34)
[2025-04-19 04:39] LABS: Albumin Level 4.5 g/dl (3.5-5.0); Chloride 108 mmol/L (98-107); Potassium 3.4 mmoL/L (3.5-5.1); Sodium 139 mmol/L (136-145)
[2025-04-19] MEDS: ONDANSETRON 4MG/2ML VIAL 4 MG IV (04:39)
[2025-04-19 04:41] LABS: Blood Urea Nitrogen 10 mg/dl (7-17); Creatinine Clearance Estimated 177 mL/min (50-200); Creatinine,Serum 0.90 mg/dl (0.52-1.04); Estimated Glomerular Filt Rate 76 ml/min (>60); GFR (African American) 92 ML/MIN (>60)
[2025-04-19 04:42] LABS: Alanine Aminotransferase 22 U/L (12-78); Albumin/Globulin Ratio 1.6 (1.1-1.8); Alkaline Phosphatase 68 U/L (38-126); Anion Gap 9.4 mEq/L (5-15); Aspartate Amino Transferase 28 U/L (14-36); Bilirubin,Total 0.2 mg/dl (0.2-1.3); Calcium 9.2 mg/dl (8.4-10.2); Carbon Dioxide 25 mmol/L (22.0-30.0); Globulin 2.8 g/dL (1.3-3.2); Glucose 113 mg/dl (74-100); Total Protein,Serum 7.3 g/dl (6.3-8.2)
--- NOTE | 2025-04-19 04:43 | ED_ITS ---
Discharge Plan Disposition Patient Disposition: Home, Self-Care Condition: Good Prescriptions Prescriptions: New ondansetron 4 mg tablet,disintegrating 4 mg PO Q6H PRN (Reason: nausea and vomiting) Qty: 10 0RF phenazopyridine 100 mg tablet 100 mg PO Q8H PRN (Reason: pain) Qty: 5 0RF sulfamethoxazole-trimethoprim 800-160 mg tablet 1 tab PO BID 6 Days Qty: 12 0RF No Action prazosin 1 mg capsule 1 mg PO DAILY naltrexone 50 mg tablet 50 mg PO DAILY sertraline 100 mg tablet 100 mg PO DAILY aripiprazole 10 mg tablet 10 mg PO DAILY bupropion HCl 150 mg tablet extended release 24 hr 150 mg PO DAILY famotidine [Pepcid] 20 mg tablet 20 mg PO BID 42 Days Qty: 84 0RF nitrofurantoin macrocrystal 100 mg capsule 100 mg PO BID 5 Days Qty: 10 0RF Rx Instructions: must administer with a meal/food lidocaine 5 % adhesive patch,medicated 1 patch topical DAILY PRN (Reason: pain) Qty: 30 0RF Rx Instructions: leave on most painful area for up to 12 hrs Referrals Follow up/Referrals: Iris Correa [Primary Care Provider, Medical] - See instructions Activity Restrictions/Add. Instructions Additional Instructions/Restrictions: You were evaluated in the ER and are believed to be appropriate for discharge at this time. Continue taking the prescribed antibiotics as directed. I have given you an extension of the prescription to give you adequate coverage for kidney infection. Drink plenty of water, Gatorade, Pedialyte for good hydration. Take the prescribed phenazopyridine (Azo) for the next few days to help relieve urinary symptoms. Take Zofran if needed for nausea. Make an appointment with your primary care doctor for reevaluation. Also follow-up with your DIRECTOR OF SPECIAL SERVICES to review culture results. Return to the ER with new, worsening, or otherwise concerning symptoms as discussed. Clinical Impressions Clinical Impression: UTI (urinary tract infection), Pyelonephritis Instructions Patient Instructions: DI for Urinary Tract Infection (UTI) Print Language Print Language: [place]al[place] Discharge ED Provider: Yoana Torres Adult HPI General Chief complaint: Urogenital-Female Stated complaint: UTI, symptoms worsened Time Seen by Provider: 04/19/25 04:09 Mode of Arrival: Ambulatory Source of Information: Patient Description of Symptoms (Recalled from ER Triage Doc. by RN): pt to the ED from home with complaints of bilateral back pain, right shoulder pain and nausea. pt stated she saw her human resources coordinator today and was diagnosed with a UTI. she has currently taken two doses of her bactrim. History of Present Illness HPI narrative: 25-year-old female presents to the ER complaining of bilateral back pain, right shoulder pain, nausea. Patient reports she saw her DIRECTOR OF SPECIAL SERVICES today for the symptoms that she was having and was diagnosed with a UTI. She has taken 2 doses of Bactrim but states she is feeling worse and that her DIRECTOR OF SPECIAL SERVICES told her she had a really bad urinary tract infection and that if it got worse she should go to the ER. Patient reports everything was positive on her urine. She is not currently . She states she has no dysuria with her urinary tract infections but it does often start with back pain. She is complaining of bilateral lower quadrant abdominal pain radiating to the bilateral back. She is also having nausea but no vomiting. Denies fevers or chills. No chest pain or difficulty breathing. Related Data Home Medications ?Medication ?Instructions ?Recorded ?Confirmed aripiprazole 10 mg tablet 10 mg PO DAILY 07/25/2407/08 bupropion HCl 150 mg 24 hr tablet, 150 mg PO DAILY 07/25/24 extended release naltrexone 50 mg tablet 50 mg PO DAILY 07/25/2407/08 prazosin 1 mg capsule 1 mg PO DAILY 07/25/2407/25 sertraline 100 mg tablet 100 mg PO DAILY 07/25/24 Previous Rx's ?Medication ?Instructions ?Recorded famotidine 20 mg tablet (Pepcid) 20 mg PO BID 6 weeks #84 tabs 07/25/24 lidocaine 5 % topical patch 1 patch topical DAILY PRN pain #30 09/13/24 ea nitrofurantoin macrocrystal 100 mg 100 mg PO BID 5 day s #10 caps 11/15/24 capsule ondansetron 4 mg disintegrating 4 mg PO Q6H PRN nausea and 04/19/25 tablet vomiting #10 tabs phenazopyridine 100 mg tablet 100 mg PO Q8H PRN pain 6 doses #5 04/19/25 tabs sulfamethoxazole 800 1 tab PO BID 6 days #12 tabs 09/12/25 mg-trimethoprim 160 mg tablet Allergies Allergy/AdvReac Type Severity Reaction Status Date / Time No Known Allergies Allergy Verified 06/13/24 11:11 [facility] Disclaimer: The information contained in this section may have been updated after the patient was seen, as this information can be updated by other users. Medical History (Updated 04/19/25 @ 06:42 by Yoana Torres MD) Colitis Anxiety Depression Thoughts of self harm Social History (Updated 07/25/24 @ 16:48 by Francheska Chavez APRN) Smoking Status: Never smoker alcohol intake: never current occupational status: employed Travel in the last 8 weeks?: None Have you lived/traveled outside [place] in past 30 days?: No Contact w/someone who lives/traveled outside US past 30 days?: No Exposure to someone with infectious disease in past 14 days?: No Do you have a fever (greater than 100.4 F or 38 C)?: No Have you tested positive for COVID-19?: No Exposed to someone with COVID-19 in past 14 days?: No Do you have a sore throat?: No Do you have a cough?: No Do you have any weakness?: No Do you have any diarrhea?: No Are you experiencing any unusual bleeding?: No Do you have any muscle aches/pain?: No Do you have any abdominal pain?: No Are you experiencing loss of taste or smell?: No ROS Obtained: Yes Systems reviewed as appropriate & no additional complaints except as documented per HPI Physical Exam General General appearance: alert and in no apparent distress Head Head exam: atraumatic and normocephalic Eye Eye exam: Present PERRL and EOMI ENT ENT exam: Present mucous membranes moist Neck Neck exam: Present normal inspection and full ROM Chest Chest inspection: Present symmetric chest wall rise Respiratory Respiratory exam: Present normal lung sounds bilaterally; Absent respiratory distress, wheezes or stridor Cardiovascular Cardiovascular exam: Present regular rate and normal rhythm Abdominal Exam Abdominal exam: Present soft and tenderness (Mild low abdomen suprapubic area); Absent distention, guarding or rebound Extremities Exam Extremities exam: Present full ROM Back Exam Back exam: Present CVA tenderness (R) and CVA tenderness (L) Neurological Exam Neurological exam: Present alert and oriented X3; Absent motor sensory deficit Psychiatric Psychiatric exam: Present normal affect and normal mood Skin Skin exam: Present warm and dry Medical Decision Making Medical Records Medical records reviewed: Yes I reviewed the patient's medical records. Screening: Per USPSTF and CDC recommendations, given the prevalence of disease in our region, it is our hospital?s policy to screen for HIV and viral Hepatitis for all patients aged 18 and over and those with ongoing risk factors. Joseph Inquiry Pt receiving controlled substance: No Vital Signs: 04/19/25 04:15 04/19/25 05:21 04/19/25 05:30 Temperature 98.0 F Temperature Source Oral Pulse Rate 71 79 Pulse Rate [Left Radial] 78 Respiratory Rate 17 Blood Pressure 122/75 124/78 Blood Pressure [Right Arm] 128/103 H Blood Pressure Mean [Right Arm] 111 Blood Pressure Source [Right Arm] Automatic Cuff Blood Pressure Position [Right Arm] Supine 02 Sat by Pulse Oximetry 100 100 98 Oxygen Delivery Method Room Air 04/19/25 06:00 Temperature Temperature Source Pulse Rate 70 Pulse Rate [Left Radial] Respiratory Rate Blood Pressure 101/60 L Blood Pressure [Right Arm] Blood Pressure Mean [Right Arm] Blood Pressure Source [Right Arm] Blood Pressure Position [Right Arm] 02 Sat by Pulse Oximetry 98 Oxygen Delivery Method Lab Data Lab Results 04/19/25 04:15: Urine Color Yellow, Urine Appearance Cloudy, Urine pH 7.0, Ur Specific [place] 1.020, Urine Protein Trace, Urine Glucose (UA) Negative, Urine Ketones Negative, Urine Blood 3+ A, Urine Nitrate Negative, Urine Bilirubin Negative, Urine Urobilinogen 0.2, Ur Leukocyte Esterase Negative, Urine RBC 10- 20, Urine WBC Occasional, Ur Squamous Epith Cells Occasional, Amorphous Sediment 2+, Urine Bacteria 2+ 04/19/25 04:20: WBC 11.3 H, RBC 4.89, Hgb 13.8, Hct 40.8, MCV 83.4, MCH 28.2, MCHC 33.8, RDW 13.4, Plt Count 302, MPV 9.8, Neut % (Auto) 61.3, Lymph % (Auto) 30.8, [place] % (Auto) 4.3, Eos % (Auto) 2.9, Baso % (Auto) 0.4, Neut # (Auto) 6.9, Lymph # (Auto) 3.5, [place] # (Auto) 0.5, Eos # (Auto) 0.3, Baso # (Auto) 0.1, Sodium 139, Potassium 3.4 L, Chloride 108 H, Carbon Dioxide 25, Anion Gap 9.4, BUN 10, Creatinine 0.90, Estimated Creat Clear 177, Estimated GFR 76, Est GFR ( Amer) 92, Glucose 113 H, Calcium 9.2, Total Bilirubin 0.2, AST 28, ALT 22, Alkaline Phosphatase 68, Troponin I < 0.01, Total Protein 7.3, Albumin 4.5, Globulin 2.8, Albumin/Globulin Ratio 1.6, Serum HCG, Qual Negative 04/19/25 04:20 04/19/25 04:20 Orders (Tests/Meds): ED MEDICATIONS Generic Name Dose Route Start Last Admin Trade Name Freq PRN Reason Stop Dose Admin Sodium Chloride 10 ml 04/19/25 05:18 04/19/25 05:19 Sodium Chloride 0.9% 10ml Syr (Rad Only) IV 05/19/25 05:17 10 ml NEEDED PRN Administration Maintain IV Site Discontinued Medications Generic Name Dose Route Start Last Admin Trade Name Freq PRN Reason Stop Dose Admin Lactated Ringer's 1,000 mls @ 999 mls/hr 04/19/25 04:22 04/19/25 06:09 Lactated Ringer's 1000 Ml Bag IV 04/19/25 05:22 Infused .Q1H1M ONE Infusion Iopamidol 75 ml 04/19/25 05:18 04/19/25 05:19 Iopamidol-370 (76%);100ml Bottle IV 04/19/25 05:19 75 ml ONCE ONE Administration Ketorolac Tromethamine 30 mg 04/19/25 04:22 04/19/25 04:34 Ketorolac 30mg/Ml Vial IV 04/19/25 04:23 30 mg ONCE ONE Administration Ondansetron HCl 4 mg 04/19/25 04:36 04/19/25 04:39 Ondansetron 4mg/2ml Vial IV 04/19/25 04:37 4 mg ONCE ONE Administration Phenazopyridine HCl 100 mg 04/19/25 05:09 04/19/25 05:17 Phenazopyridine 200mg Tablet PO 04/19/25 05:10 100 mg ONCE ONE Administration ORDERS Category Date Time Status CT abdomen pelvis w con Stat Cat Scan 04/19/25 04:22 Completed CXR --portable [XR chest portable] Stat Exams 04/19/25 05:12 Completed CBC w/Auto Diff [Complete Blood Count Auto Diff] Stat Lab 04/19/25 04:20 Completed CMP [Comprehensive Metabolic Panel] Stat Lab 04/19/25 04:20 Completed HCG Qualitative, Serum Stat Lab 04/19/25 04:20 Completed Trop I [Troponin I] Stat Lab 04/19/25 04:20 Completed Troponin I Q3H Lab 04/19/25 08:15 Ordered Troponin I Q3H Lab 04/19/25 11:15 Ordered Urinalysis and Microscopic Stat Lab 04/19/25 04:15 Completed Urine Culture Stat Micro 04/19/25 04:15 Received Medical Decision Narrative: In summary, this 25-year-old female presents to the emergency department today with back pain in the setting of UTI. On initial evaluation patient is hemodynamically stable, afebrile, overall well-appearing, she does have suprapubic tenderness to palpation but no rebound or guarding, no peritonitic findings, bilateral CVA tenderness present, remainder of exam unremarkable. Differential diagnosis includes but is not limited to urinary tract infection, pyelonephritis, perinephric abscess, also considered possibility of of biliary pathology since patient is complaining of right flank pain radiating to the shoulder with nausea though Weiss sign is negative. Based on these concerns, I ordered hematologic and serum labs, urinalysis, CT abdomen pelvis with contrast, I was going to perform [id number] ultrasound of the right upper quadrant however patient has already had prior cholecystectomy. No concerns for cholecystitis. Patient received Toradol, IV fluids, Zofran for treatment. Labs personally reviewed demonstrate mild leukocytosis WBC 11.3, no anemia, normal platelets, CMP nonactionable, good kidney function, hCG negative, UA with blood but nitrate and leukocytes esterase negative, only occasional WBCs on micro but 2+ bacteria. Review of records from demonstrate patient had nitrate positive, significant leukocyte esterase positive, bacteria positive, blood positive on her urine dipstick on 04/18/2025. She was started on Bactrim, they did not prescribe Azo or other medications for symptom control. Urine culture at is pending. Compared to her urinalysis at , her UA here already appears improved therefore I will not change antibiotics at this time but I am going to give the patient a dose of phenazopyridine while here in the ER. She is still complaining of shoulder pain and without the gallbladder to cause biliary colic, this increases my suspicion for possible atypical presentation of ACS therefore cardiac workup was added on though I still suspect her symptoms are related to pyelonephritis. XR personally interpreted demonstrates no acute intrathoracic abnormality, see radiology read for final interpretation. ECG personally interpreted demonstrates sinus rhythm, rate 65, normal axis, normal UT and QTc, no STEMI CT imaging personally interpreted demonstrate no evidence of perinephric abscess, no stone, no other acute intra-abdominal pathology, see radiology read for final interpretation. Troponin undetectably low less than 0.01. Reassuring in the setting of nonischemic ECG and patient having multiple days of symptoms. I do not believe serial troponin is indicated at this time. On reassessment patient's pain is controlled. She is resting more comfortably at this time. On discussion with her she states she only received 7 pills of Bactrim (3.5 days). While I believe the Bactrim is likely being effective against her current infection based on improvement of UA, I am concerned that she has pyelonephritis and this will not be adequate duration to treat her infection fully. I provided additional prescription for Bactrim to extend her duration of coverage and provided prescription for phenazopyridine and Zofran as well for symptomatic management. Patient is hemodynamically stable and appropriate for discharge at this time. She is comfortable with this plan. Urine cultures both here and at are pending. Patient was given instructions on symptomatic management, medication use, follow up instructions, and return precautions for the emergency department. Patient indicated understanding and was discharged in stable condition. Critical Care Critical Care Time Critical Care Time: No
[2025-04-19 04:53] LABS: HCG Qualitative, Serum Negative (Negative)
[2025-04-19 04:58] LABS: Amorphous Sediment,Urine 2+ /lpf; Bacteria,Urine 2+ /lpf; Squamous Epithelial Cell,Urine Occasional #/hpf (0-5); WBC,Urine Occasional #/hpf (0-3)
--- NOTE | 2025-04-19 05:12 | XR_ITS ---
PROCEDURE INFORMATION: Exam: XR Chest Exam date and time: 04/19/2025 5:21 AM Age: 25 years old Clinical indication: Other: Right shoulder pain; Additional info: R shoulder pain TECHNIQUE: Imaging protocol: Radiologic exam of the chest. Views: 1 view. COMPARISON: CR XR CHEST PORTABLE 09/12/2024 11:58 PM FINDINGS: Lungs: Unremarkable. No consolidation. Pleural spaces: Unremarkable. No pleural effusion. No pneumothorax. Heart/Mediastinum: Unremarkable. No cardiomegaly. Bones/joints: Unremarkable. IMPRESSION: No acute findings.
[2025-04-19] MEDS: PHENAZOPYRIDINE 200MG TABLET 100 MG PO (05:17)
[2025-04-19] MEDS: SODIUM CHLORIDE 0.9% 10ML SYR (RAD ONLY) 10 ML IV (05:19)
[2025-04-19] MEDS: IOPAMIDOL-370 (76%);100ML BOTTLE 75 ML IV (05:19)
[2025-04-19 05:21] VITALS: BP 122/75; PULSE 71; O2SAT 100
--- NOTE | 2025-04-19 05:24 | ECG_ITS ---
APPROVED REPORT Exam: Resting ECG HR:65 bpm ECG Measurements Heart Rate 65 AXES OR 157 P 74 QRSd 86 QRS 83 QT 399 T 71 QTc 410 Conclusion SINUS RHYTHM NORMAL ECG Electronically signed by : VIKTOR LUCIANO, 04/20/2025 07:09:20
--- NOTE | 2025-04-19 05:24 | PC.NURSE ---
pt returned from CT. pt given warm blanket and a water at this time. no complaints reported
[2025-04-19 05:30] VITALS: BP 124/78; PULSE 79; O2SAT 98
[2025-04-19 05:39] LABS: Troponin I < 0.01 ng/ml (0.00-0.034)
[2025-04-19 06:00] VITALS: BP 101/60; PULSE 70; O2SAT 98
[2025-04-19 07:01] VITALS: BP 107/68; PULSE 65; RESP 16; TEMP 36.6; O2SAT 98
== END 2025-04-19 07:02 | disposition home or self-care (01) ==
PROVIDERS: Emergency Provider Emergency Medicine; PCP Nurse Practitioner Family
DX: N12 Tubulo-interstitial nephritis, not specified as acute or chronic (principal); N39.0 Urinary tract infection, site not specified
CPT/HCPCS: 71045; 74177; 80053; 81001; 84484; 84703; 85025; 87086; 93005; 96361; 96374; 96375; 99285; J1885; J2405; J7120; Q9967